=== PATIENT | male | born 2000 | race Caucasian/White ===

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

== ENCOUNTER 2022-12-05 19:54 | Observation (INO) | payer MEDICAID ==
[2022-12-05] MEDS ORDERED: Zofran 4 MG/2 ML VIAL IV ONE (20:10)
[2022-12-05] MEDS ORDERED: TORAdol 30 mg Injection IV ONE (20:10)
[2022-12-05] MEDS ORDERED: Sodium Chloride 0.9% 1000 ML 1,000 ML IV STA (20:10)
--- NOTE | 2022-12-05 20:15 | ERPHSYRPT ---
- History of Present Illness Time Seen by Provider: 12/05/22 20:01 Historian: patient, family Exam Limitations: clinical condition Physician History: 21 years old with history of autism, seizure disorder, decreased oral intake having feeding tube is brought in the ER with chief complaint of abdominal pain. Mom reports noticed some abdominal distention and prior to arrival he was complaining of abdominal pain when they tried to give use feeding tube for medication and has 1 episode of vomiting nonprojectile, nonbilious vomiting without hematemesis. No fever or chills reported. Allergies/Adverse Reactions: divalproex sodium [From Depakote] Allergy (Intermediate, Verified 12/05/22 20:20) topiramate [From Topamax] Allergy (Intermediate, Verified 12/05/22 20:20) lamotrigine [From Lamictal] Adverse Reaction (Verified 12/05/22 20:20) Home Medications: Rufinamide [Banzel] 8 ml PO BID 08/11/14 [History] Lacosamide [Vimpat] 17 ml G-TUBE BID 01/25/15 [History] Diazepam [Diastat] 10 mg RC UD 02/05/15 [History] clonazePAM [Clonazepam] 0.125 mg G-TUBE BID 02/24/17 [History] Glycopyrrolate 1 mg PO BID 08/04/18 [History] Calcium Carbonate 5 ml G-TUBE EVENING MEAL 11/05/18 [History] Cetirizine HCl 10 ml G-TUBE DAILY 10/03/19 [History] Hx Tetanus, Diphtheria Vaccination/Date Given: Yes Hx Influenza Vaccination/Date Given: No Hx Pneumococcal Vaccination/Date Given: No - Review of Systems All Other Systems: Unable due to condition - Past Medical History Pertinent Past Medical History: Yes Neurological History: Epilepsy, Seizures, Other ENT History: No Pertinent History Cardiac History: No Pertinent History Respiratory History: No Pertinent History Endocrine Medical History: No Pertinent History Musculoskeletal History: No Pertinent History GI Medical History: No Pertinent History History: No Pertinent History Psycho-Social History: Anxiety, Other Male Reproductive Disorders: No Pertinent History 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 Patient has a Vagal Nerve Stimulator (VNS) implanted in his left chest which is for seizure control. Also has autisim and is nonverbal. Uses sign language. - Past Surgical History Past Surgical History: Yes Neuro Surgical History: No Pertinent History Cardiac: No Pertinent History Respiratory: No Pertinent History Gastrointestinal: Appendectomy Genitourinary: No Pertinent History Musculoskeletal: Orthopedic Surgery Male Surgical History: No Pertinent History Other Surgical History: TONSILECTOMYADNOIDECTOMY. Vagal nerve stimulator (VNS) 05/2014. Appendectomy 08/11/14. Fractured left arm that was reset. tubes in ears - Social History Smoking Status: Never smoker Exposure to second hand smoke: No Drug Use: none Patient Lives Alone: No - Nursing Vital Signs Nursing Vital Signs: Initial Vital Signs Temperature 98.5 F 12/05/22 20:03 Pulse Rate 94 H 12/05/22 20:03 Respiratory Rate 16 12/05/22 20:03 Blood Pressure 141/84 12/05/22 20:03 O2 Sat by Pulse Oximetry 99 12/05/22 20:03 Pain Scale Pain Intensity 4 - Physical Exam General Appearance: no apparent distress, alert Eye Exam: PERRL/EOMI Ears, Nose, Throat Exam: normal ENT inspection Neck Exam: normal inspection, full range of motion Respiratory Exam: normal breath sounds, lungs clear Cardiovascular Exam: regular rate/rhythm, normal heart sounds Gastrointestinal/Abdomen Exam: soft, normal bowel sounds (Hypoactive), tenderness (Mild generalized with no guarding or rebound) Back Exam: normal inspection Extremity Exam: normal inspection, normal range of motion Neurologic Exam: alert, 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, cooperative Skin Exam: normal color SpO2 Interpretation: normal SpO2: 99 O2 Delivery: Room Air Ordered Tests: Active Orders 24 hr Category Date Time Status IV Insertion STAT Care 12/05/22 20:10 Active NPO (ED) STAT Care 12/05/22 20:10 Active ABDOMEN AND PELVIS W CONTRAST [CT] Stat Exams 12/05/22 22:17 Ordered ABDOMEN AND PELVIS W/0 CONTRAS [CT] Stat Exams 12/05/22 20:12 Completed CBC W DIFF Stat Lab 12/05/22 20:20 Completed CMP Stat Lab 12/05/22 20:20 Completed LIPASE Stat Lab 12/05/22 20:20 Completed UA W/RFX UR CULTURE Stat Lab 12/05/22 21:58 Completed Medication Summary Discontinued Medications Generic Name Dose Route Start Last Admin Trade Name Freq PRN Reason Stop Dose Admin Sodium Chloride 1,000 mls @ 999 mls/hr 12/05/22 20:10 12/05/22 22:04 Sodium Chloride 0.9% 1000 Ml IV 12/05/22 21:10 Infused .Q1H1M STA Infusion Sodium Chloride Confirm 12/05/22 20:43 Sodium Chloride 0.9% 1000 Ml Administered 12/05/22 20:44 Dose 1,000 mls @ ud .ROUTE .STK-MED ONE Ketorolac Tromethamine 15 mg 12/05/22 20:10 12/05/22 22:54 Ketorolac Tromethamine 30 Mg/Ml Inj IV 12/05/22 20:11 Not Given STAT ONE Ondansetron HCl 4 mg 12/05/22 20:10 12/05/22 20:44 Ondansetron Hcl 4 Mg/2 Ml Vial IV 12/05/22 20:11 4 mg STAT ONE Administration Ondansetron HCl Confirm 12/05/22 20:42 Ondansetron Hcl 4 Mg/2 Ml Vial Administered 12/05/22 20:43 Dose 4 mg .ROUTE .STK-MED ONE Lab/Rad Data: Laboratory Result Diagrams 12/05/22 20:20 12/05/22 20:20 Laboratory Results 12/05/22 12/05/22 12/05/22 Range/Units 21:58 20:20 20:20 WBC 10.0 (4.0-10.5) x10^3/uL RBC 6.01 H (4.1-5.6) x10^6/uL Hgb 16.5 (12.5-18.0) g/dL Hct 49.3 (42-50) % MCV 82.0 (78-100) fL MCH 27.5 (26-32) pg MCHC 33.5 (32-36) g/dL RDW 12.3 (11.5-14.0) % Plt Count 248 (150-450) x10^3/uL MPV 10.5 (7.5-11.0) fL Gran % 70.7 H (36.0-66.0) % Immature Gran % (Auto) 0.2 (0.00-0.4) % Nucleat RBC Rel Count 0.0 (0.00-0.1) % Eos # (Auto) 0.22 (0-0.5) x10^3/uL Immature Gran # (Auto) 0.02 (0.00-0.03) x10^3u/L Absolute Lymphs (auto) 2.04 (1.0-4.6) x10^3/uL Absolute Monos (auto) 0.61 (0.0-1.3) x10^3/uL Absolute Nucleated RBC 0.00 (0.00-0.01) x10^3u/L Lymphocytes % 20.5 L (24.0-44.0) % Monocytes % 6.1 (0.0-12.0) % Eosinophils % 2.2 (0.00-5.0) % Basophils % 0.3 (0.0-0.4) % Absolute Granulocytes 7.05 H (1.4-6.9) x10^3/uL Basophils # 0.03 (0-0.4) x10^3/uL Sodium 141 (137-145) mmol/L Potassium 4.6 (3.5-5.1) mmol/L Chloride 104 (98-107) mmol/L Carbon Dioxide 27 (22-30) mmol/L Anion Gap 14.2 (5-15) MEQ/L BUN 17 (9-20) mg/dL Creatinine 1.06 (0.66-1.25) mg/dL Estimated GFR > 60.0 ML/MIN Glucose 100 (74-106) mg/dL Calcium 9.7 (8.4-10.2) mg/dL Total Bilirubin 0.60 (0.2-1.3) mg/dL AST 28 (17-59) U/L ALT 14 (0-50) U/L Alkaline Phosphatase 77 (38-126) U/L Serum Total Protein 7.5 (6.3-8.2) g/dL Albumin 5.0 (3.5-5.0) g/dL Lipase 103 (23-300) U/L Urine Color Yellow (Yellow) Urine Appearance Turbid A (Clear) Urine pH 7.0 (4.6-8.0) Ur Specific [place] 1.015 (1.005-1.030) Urine Protein Negative (Negative) Urine Glucose (UA) Negative (Negative) mg/dL Urine Ketones Negative (Negative) Urine Blood Negative (Negative) Urine Nitrite Negative (Negative) Urine Bilirubin Negative (Negative) Urine Urobilinogen 1.0 A (0.2) mg/dL Ur Leukocyte Esterase Negative (Negative) U Hyaline Cast (Auto) NONE SEEN (0-2) /LPF Urine Microscopic RBC 0-2 (0-5) /HPF Urine Microscopic WBC 0-2 (0-5) /HPF Ur Epithelial Cells None Seen (None Seen) /HPF Urine Bacteria None Seen (None Seen) /HPF Urine Culture Reflexed NO (NO) - Progress Progress: improved, re-examined Progress Note: 12/05/22 20:15 21 years old with history of autism, seizure disorder, decreased oral intake having feeding tube is brought in the ER with chief complaint of abdominal pain. Mom reports noticed some abdominal distention and prior to arrival he was complaining of abdominal pain when they tried to give use feeding tube for medication and has 1 episode of vomiting nonprojectile, nonbilious vomiting without hematemesis. No fever or chills reported. No history of obstruction 12/05/22 23:11 On exam patient has diffuse mild tenderness with hypoactive bowel sounds. Is given fluids and symptomatic treatment for pain, on reevaluation feeling better and does not want any more pain medications. Work-up showed normal white count, fairly unremarkable chemistries. Obtained CT abdomen pelvis without contrast which showed markedly distended stomach with food particle and also distention of proximal duodenum with collapse in the distal part of the duodenum suspecting intestinal obstruction. Patient does have significant stool load seen on the CT and has history of constipation. I have discussed with Dr. James Rosales, reviewed history, work-up, recommended obtaining CT abdomen pelvis with p.o. and IV contrast and making patient n.p.o. for an admission to hospitalist service. I have discussed with Dr. Marybel Silvestre, reviewed history, work-up and surgery recommendation and patient is excepted for admission. I have discussed the results of work-up with patient and family and recommendations of general surgery and plan of admission which they understand and agree with it. 12/05/22 23:13 Discussed with : Keron Will see patient in: hospital (observation) Counseled pt/family regarding: lab results, diagnosis, rad results Medical Desision Making - Independent Historian Additional History obtained from: Mother - Diagnostic Testing Diagnostic test were ordered, analyzed, and reviewed by me: Yes Radiological Interpretation: Reviewed by me, Teleradiologist Report - Risk of complications The pt has a high risk of morbidity or mortality based on: Decision regarding hospitilization or escalation of hosp level of care - Departure Departure Disposition: Observation Clinical Impression: Intestinal obstruction Condition: Stable Critical Care Time: No Referrals: JEFF KAPLAN MD [Primary Care Provider] - Follow up/PCP as directed
[2022-12-05 20:28] LABS: Absolute Neutrophil Ct (ANC) 7.05 x10^3/uL (1.4-6.9); BASOPHIL % 0.3 % (0.0-0.4); Basophil (Absolute #) 0.03 x10^3/uL (0-0.4); Eosinophil % 2.2 % (0.00-5.0); Eosinophil (Absolute #) 0.22 x10^3/uL (0-0.5); Hematocrit 49.3 % (42-50); Hemoglobin 16.5 g/dL (12.5-18.0); IMMATURE GRAN # 0.02 x10^3u/L (0.00-0.03); IMMATURE GRAN % 0.2 % (0.00-0.4); Lymphocyte (Absolute #) 2.04 x10^3/uL (1.0-4.6); Lymphocytes % 20.5 % (24.0-44.0); Mean Corpuscular Hemoglobin 27.5 pg (26-32); Mean Corpuscular Hgb Concent. 33.5 g/dL (32-36); Mean Platelet Volume 10.5 fL (7.5-11.0); Monocyte (Absolute #) 0.61 x10^3/uL (0.0-1.3); Monocytes % 6.1 % (0.0-12.0); Neutrophil % 70.7 % (36.0-66.0); Platelet Count 248 x10^3/uL (150-450); Red Blood Count 6.01 x10^6/uL (4.1-5.6); Red Cell Distribution Width 12.3 % (11.5-14.0)
[2022-12-05] MEDS ORDERED: Zofran 4 MG/2 ML VIAL ONE (20:42)
[2022-12-05] MEDS ORDERED: Sodium Chloride 0.9% 1000 ML 1,000 ML ONE (20:43)
[2022-12-05 21:11] LABS: ALKALINE PHOSPHATASE 77 U/L (38-126); ANION GAP 14.2 MEQ/L (5-15); BLOOD UREA NITROGEN 17 mg/dL (9-20); CHLORIDE 104 mmol/L (98-107); Calcium 9.7 mg/dL (8.4-10.2); Carbon Dioxide 27 mmol/L (22-30); Creatinine 1 1.06 mg/dL (0.66-1.25); EST GLOMERULAR FILTRATION RATE > 60.0 ML/MIN; Glucose 100 mg/dL (74-106); LIPASE 103 U/L (23-300); Potassium 4.6 mmol/L (3.5-5.1); SGOT/AST 28 U/L (17-59); SGPT/ALT 14 U/L (0-50); SODIUM 141 mmol/L (137-145); Total Protein 7.5 g/dL (6.3-8.2)
--- NOTE | 2022-12-05 21:42 | XRAY ---
CLINICAL HISTORY:abd pain /vomiting COMPARISON:None. TECHNIQUE:A CT scan of the abdomen and pelvis was performed without IV contrast. CTDI : 2.53mGy, Total DLP : 144.94 mGy/cm. FINDINGS: A feeding tube was seen in the stomach. The stomach is grossly distended with food particles. The 1st part of the duodenum also appears dilated. The rest of the duodenum are not clearly visualized, may be collapsed or compressed. No surrounding fat stranding or free fluid is noted. No free air was seen at the time of the scan. Fecal-loaded large bowel loops appear normal, no gut wall thickening is appreciated. The sigmoid and rectum appear normal. The liver is normal in size and shape and with regular margins. It measures 13.1 cm. No focal or diffuse parenchymal abnormality. No hepatic mass is identified. The portal vein, intrahepatic biliary radicals, and the bile ducts are normal. Gall bladder appears contracted, and no radio-opaque calculus or pericholecystic fluid was identified. Common bile appears normal. Pancreas appears normal. No peripancreatic fat stranding, pancreatic pseudocyst, or peripancreatic fluid collection. Spleen normal in size, no mass seen. A small round calcification is seen in its superior aspect. Both adrenal glands are unremarkable. Both kidneys are normal in size, shape, and orientation. No calculi, cyst mass, or hydronephrosis was seen on either side. Both ureters and urinary bladder appear normal. The caecum and ileocecal junction appear normal. Several sub cm reactive appearing lymph nodes are seen in the mesentery and in para-aortic recesses. No pelvic side wall lymphadenopathy. Visualized thoracic and lumbar spine appear normal. No lytic or sclerotic bone lesions in visualized bones. Visualized lung bases are unremarkable. No pleural or pericardial effusion was noted. IMPRESSION: 1. Grossly distended stomach with food particles. The 1st part of the duodenum also appears dilated. The rest of the duodenum are not clearly visualized, may be collapsed or compressed. CT scan with contrast is suggested for further evaluation of the possible site of obstruction. Clinical correlation is advised. 2. The feeding tube is seen parked in the stomach. 3. Fecal stasis in the colon. The [facility] ER was called at [phone] at 08:33 PM [employer]IE[employer], 12/05/2022, and Ramesh Wynn was informed about significant findings. Electronically Signed by: Basil Soni MD. (12/05/2022 20:40:35 [employer])
[2022-12-05 22:08] LABS: Appearance Turbid (Clear); Bacteria None Seen /HPF (None Seen); Bilirubin Negative (Negative); Blood Negative (Negative); Epithelial Cells None Seen /HPF (None Seen); Glucose, Urine Negative (Negative); Hyaline Casts NONE SEEN /LPF (0-2); Ketones Negative (Negative); Leukocyte Esterase Negative (Negative); Nitrite Negative (Negative); Protein,Urine Dip Negative (Negative); RBC 0-2 /HPF (0-5); Specific Gravity 1.015 (1.005-1.030); WBC 0-2 /HPF (0-5)
[2022-12-05 22:09] LABS: ADD URINE CULTURE? NO (NO)
--- NOTE | 2022-12-06 00:15 | PCM.HP ---
History of Present Illness - Chief Complaint Chief Complaint: Abdominal distention History of Present Illness: is 21 year old with autism, seizure disorder, decreased oral intake requiring a G-tube who presents with abdominal distention, vomiting. No fevers. CT abdomen with no contrast in the ED showed a grossly distended stomach with food particles. The 1st part of the duodenum also appears dilated. The rest of the duodenum are not clearly visualized, may be collapsed or compressed, with radiology recommending a CT scan with contrast. Patient being admitted with plans for GI to see the patient in the AM. Keep NPO. On exam patient has diffuse mild tenderness with hypoactive bowel sounds. - Review of Systems Constitutional: No Fever, No Chills Eyes: No Symptoms Ears, Nose, & Throat: No Symptoms Respiratory: No Cough, No Short Of Breath Cardiac: No Chest Pain, No Edema, No Syncope Abdominal/Gastrointestinal: Abdominal Pain, Vomiting, No Nausea, No Diarrhea Genitourinary Symptoms: No Dysuria Musculoskeletal: No Back Pain, No Neck Pain Skin: No Rash Neurological: No Dizziness, No Focal Weakness, No Sensory Changes Psychological: No Symptoms Endocrine: No Symptoms Hematologic/Lymphatic: No Symptoms Immunological/Allergic: No Symptoms Medications & Allergies Home Medications: Home Medication List Rufinamide [Banzel] 8 ml PO BID 08/11/14 [History Confirmed 12/05/22] Lacosamide [Vimpat] 17 ml G-TUBE BID 01/25/15 [History Confirmed 12/05/22] Diazepam [Diastat] 10 mg RC UD 02/05/15 [History Confirmed 12/05/22] clonazePAM [Clonazepam] 0.125 mg G-TUBE BID 02/24/17 [History Confirmed 12/05/22] Glycopyrrolate 1 mg PO BID 08/04/18 [History Confirmed 12/05/22] Calcium Carbonate 5 ml G-TUBE EVENING MEAL 11/05/18 [History Confirmed 12/05/22] Cetirizine HCl 10 ml G-TUBE DAILY 10/03/19 [History Confirmed 12/05/22] Allergies/Adverse Reactions: Allergies Allergy/AdvReac Type Severity Reaction Status Date / Time divalproex sodium Allergy Intermediate Verified 12/05/22 20:20 [From Depakote] topiramate [From Topamax] Allergy Intermediate Verified 12/05/22 20:20 lamotrigine [From Lamictal] AdvReac Verified 12/05/22 20:20 - Past Medical History Past Medical History: Yes Neurological History: Epilepsy, Seizures, Other ENT History: No Pertinent History Cardiac History: No Pertinent History Respiratory History: No Pertinent History Endocrine Medical History: No Pertinent History Musculoskelatal History: No Pertinent History GI Medical History: No Pertinent History History: No Pertinent History Pyscho-Social History: Anxiety, Other Male Reproductive Disorders: No Pertinent History Comment: 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 Patient has a Vagal Nerve Stimulator (VNS) implanted in his left chest which is for seizure control. Also has autisim and is nonverbal. Uses sign language. - Past Surgical History Past Surgical History: Yes Neuro Surgical History: No Pertinent History Cardiac History: No Pertinent History Respiratory Surgery: No Pertinent History GI Surgical History: Appendectomy Genitourinary Surgical Hx: No Pertinent History Musculskeletal Surgical Hx: Orthopedic Surgery Male Surgical History: No Pertinent History Other Surgical History: TONSILECTOMYADNOIDECTOMY. Vagal nerve stimulator (VNS) 05/2014. Appendectomy 08/11/14. Fractured left arm that was reset. tubes in ears - Social History Smoking Status: Never smoker Exposure to second hand smoke: No Alcohol: None Drug Use: none - Physical Exam Vital Signs: Vital Signs - 24 hr Temp Pulse Resp BP BP Pulse Ox 12/05/22 23:14 99 12/05/22 22:01 81 18 145/78 97 12/05/22 21:30 90 20 144/89 97 12/05/22 21:28 89 18 162/85 99 12/05/22 20:03 98.5 F 94 H 16 141/84 99 General Appearance: no apparent distress, alert Neurologic Exam: alert, 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, cooperative, normal mood/affect, nml cerebellar function, nml station & gait, sensation nml, No motor deficits Eye Exam: PERRL/EOMI, eyes nml inspection Ears, Nose, Throat Exam: normal ENT inspection, TMs normal, pharynx normal, moist mucous membranes Neck Exam: normal inspection, non-tender, supple, full range of motion Respiratory Exam: normal breath sounds, lungs clear, No respiratory distress Cardiovascular Exam: regular rate/rhythm, normal heart sounds, normal peripheral pulses Gastrointestinal/Abdomen Exam: soft, distention (distended), No tenderness, No mass Back Exam: normal inspection, normal range of motion, No CVA tenderness, No vertebral tenderness Extremity Exam: normal inspection, normal range of motion, pelvis stable Skin Exam: normal color, warm, dry, No rash Lymphatic Exam: No adenopathy Results - Labs Lab/Micro Results: Lab Results-Last 24 Hours 12/05/22 12/05/22 12/05/22 Range/Units 20:20 20:20 21:58 WBC 10.0 (4.0-10.5) x10^3/uL RBC 6.01 H (4.1-5.6) x10^6/uL Hgb 16.5 (12.5-18.0) g/dL Hct 49.3 (42-50) % MCV 82.0 (78-100) fL MCH 27.5 (26-32) pg MCHC 33.5 (32-36) g/dL RDW 12.3 (11.5-14.0) % Plt Count 248 (150-450) x10^3/uL MPV 10.5 (7.5-11.0) fL Gran % 70.7 H (36.0-66.0) % Immature Gran % (Auto) 0.2 (0.00-0.4) % Nucleat RBC Rel Count 0.0 (0.00-0.1) % Eos # (Auto) 0.22 (0-0.5) x10^3/uL Immature Gran # (Auto) 0.02 (0.00-0.03) x10^3u/L Absolute Lymphs (auto) 2.04 (1.0-4.6) x10^3/uL Absolute Monos (auto) 0.61 (0.0-1.3) x10^3/uL Absolute Nucleated RBC 0.00 (0.00-0.01) x10^3u/L Lymphocytes % 20.5 L (24.0-44.0) % Monocytes % 6.1 (0.0-12.0) % Eosinophils % 2.2 (0.00-5.0) % Basophils % 0.3 (0.0-0.4) % Absolute Granulocytes 7.05 H (1.4-6.9) x10^3/uL Basophils # 0.03 (0-0.4) x10^3/uL Sodium 141 (137-145) mmol/L Potassium 4.6 (3.5-5.1) mmol/L Chloride 104 (98-107) mmol/L Carbon Dioxide 27 (22-30) mmol/L Anion Gap 14.2 (5-15) MEQ/L BUN 17 (9-20) mg/dL Creatinine 1.06 (0.66-1.25) mg/dL Estimated GFR > 60.0 ML/MIN Glucose 100 (74-106) mg/dL Calcium 9.7 (8.4-10.2) mg/dL Total Bilirubin 0.60 (0.2-1.3) mg/dL AST 28 (17-59) U/L ALT 14 (0-50) U/L Alkaline Phosphatase 77 (38-126) U/L Serum Total Protein 7.5 (6.3-8.2) g/dL Albumin 5.0 (3.5-5.0) g/dL Lipase 103 (23-300) U/L Urine Color Yellow (Yellow) Urine Appearance Turbid A (Clear) Urine pH 7.0 (4.6-8.0) Ur Specific [place] 1.015 (1.005-1.030) Urine Protein Negative (Negative) Urine Glucose (UA) Negative (Negative) mg/dL Urine Ketones Negative (Negative) Urine Blood Negative (Negative) Urine Nitrite Negative (Negative) Urine Bilirubin Negative (Negative) Urine Urobilinogen 1.0 A (0.2) mg/dL Ur Leukocyte Esterase Negative (Negative) U Hyaline Cast (Auto) NONE SEEN (0-2) /LPF Urine Microscopic RBC 0-2 (0-5) /HPF Urine Microscopic WBC 0-2 (0-5) /HPF Ur Epithelial Cells None Seen (None Seen) /HPF Urine Bacteria None Seen (None Seen) /HPF Urine Culture Reflexed NO (NO) - Radiology Impressions Radiology Exams & Impressions: Radiology Procedures Category Date Time Status ABDOMEN AND PELVIS W CONTRAST [CT] Stat Exams 12/05/22 22:17 Taken ABDOMEN AND PELVIS W/0 CONTRAS [CT] Stat Exams 12/05/22 20:12 Completed Assessment/Plan (1) Abdominal distention Current Visit: Yes Status: Acute Assessment & Plan: 1. NPO by mouth and G-tube 2. Continue IVF 3. CT Scan of abdomen with IV and PO contrast 4. GI to evaluate in the AM Code(s): R14.0 - ABDOMINAL DISTENSION (GASEOUS) Telemedicine Encounter - Telemedicine Encounter Telemedicine Encounter: The entirety of this encounter was performed via Telemedicine"
--- NOTE | 2022-12-06 00:22 | XRAY ---
CLINICAL HISTORY:abd pain, obstruction COMPARISON:12/06/2022 TECHNIQUE:Multiple axial sections of abdomen and pelvis were acquired with intravenous contrast administration. Coronal and sagittal reformatted images were obtained. FINDINGS: Both lung bases are clear. An enteral feeding tube was seen in the stomach with the bulb in distal gsrtric body. Again seen ia the grossly distended stomach with food residue, measuring 22.6 cm in CC dimension extending up to the level of L3. The 1st part of the duodenum also appears mildly prominent without signficant distention. The rest of the duodenum and small bowel loops are well opacified without dilatation. No surrounding fat stranding. The distal esophagus appears normal. Moderate colonic stool volume. The sigmoid and rectum appear normal. The caecum and ileocecal junction appear normal. The liver is normal in size and shape and with regular margins. No focal or diffuse parenchymal abnormality. No hepatic mass is identified. The portal vein, intrahepatic biliary radicals, and the bile ducts are normal. Gall bladder appears contracted, and no radio-opaque calculus was identified. Common bile appears normal. Pancreas appears normal. Spleen normal in size, no mass seen. A small round calcification/granuloma is seen in its superior aspect. Both adrenal glands are unremarkable. Both kidneys are normal in size, shape, and orientation. No calculi, cyst mass, or hydronephrosis was seen on either side. Both ureters and urinary bladder appear normal. No free fluid is noted. No free air was seen at the time of the scan. Several sub cm reactive appearing lymph nodes are seen in the mesentery and in para-aortic recesses. No pelvic side wall lymphadenopathy. Visualized thoracic and lumbar spine appear normal. No lytic or sclerotic bone lesions in visualized bones. Visualized lung bases are unremarkable. No pleural or pericardial effusion was noted. IMPRESSION: 1. Markedly distended stomach containing food residue. No distention of small bowel loops is seen. Possibility of gastric outlet obstruction would be a consideration. Findings are similar to the non-contrast study done earlier today. Recommend clinical correlation and follow-up. 2. An enteric feeding tube is seen with its bulb at distal gastric body. 3. Moderate colonic stool volume. Electronically Signed by: Basil Soni MD. (12/05/2022 23:20:37 [employer] IN [employer])
[2022-12-06] MEDS: Sodium Chloride 0.9% 1000 ML 1,000 ML IV SCH ×4 (00:45→23:58)
[2022-12-06 06:18] LABS: BASOPHIL % 0.2 % (0.0-0.4); Basophil (Absolute #) 0.02 x10^3/uL (0-0.4); Eosinophil % 2.1 % (0.00-5.0); Eosinophil (Absolute #) 0.19 x10^3/uL (0-0.5); Hematocrit 43.8 % (42-50); Hemoglobin 14.2 g/dL (12.5-18.0); IMMATURE GRAN # 0.02 x10^3u/L (0.00-0.03); IMMATURE GRAN % 0.2 % (0.00-0.4); Lymphocytes % 22.3 % (24.0-44.0); Mean Cell Volume 83.3 fL (78-100); Mean Corpuscular Hgb Concent. 32.4 g/dL (32-36); Mean Platelet Volume 10.3 fL (7.5-11.0); Monocyte (Absolute #) 0.55 x10^3/uL (0.0-1.3); Monocytes % 6.1 % (0.0-12.0); Neutrophil % 69.1 % (36.0-66.0); Platelet Count 220 x10^3/uL (150-450); Red Blood Count 5.26 x10^6/uL (4.1-5.6); Red Cell Distribution Width 12.4 % (11.5-14.0)
[2022-12-06 06:24] LABS: ALBUMIN 3.8 g/dL (3.5-5.0); ALKALINE PHOSPHATASE 68 U/L (38-126); ANION GAP 7.5 MEQ/L (5-15); BLOOD UREA NITROGEN 13 mg/dL (9-20); CHLORIDE 110 mmol/L (98-107); Calcium 8.8 mg/dL (8.4-10.2); Carbon Dioxide 28 mmol/L (22-30); EST GLOMERULAR FILTRATION RATE > 60.0 ML/MIN; Glucose 94 mg/dL (74-106); Potassium 3.9 mmol/L (3.5-5.1); SGOT/AST 17 U/L (17-59); SGPT/ALT 13 U/L (0-50); SODIUM 141 mmol/L (137-145); Total Protein 6.1 g/dL (6.3-8.2)
[2022-12-06] MEDS ORDERED: LACOSAMIDE 200 MG PO SCH (10:00)
[2022-12-06] MEDS ORDERED: CLONAZEPAM 0.25 MG G-TUBE SCH ×2 (10:00→22:00)
[2022-12-06] MEDS ORDERED: MEDICATION INTERVENTION MC SCH ×2 (10:30)
[2022-12-06] MEDS ORDERED: clonazePAM PO SCH ×2 (11:00→22:00)
[2022-12-06] MEDS: PATIENT OWN MEDICATION G-TUBE SCH ×2 (11:20→21:55)
[2022-12-06] MEDS: PATIENT OWN MEDICATION PO SCH ×4 (11:21→21:55)
--- NOTE | 2022-12-06 13:37 | PCM.NOTE ---
Date and Time: 12/06/228 Subjective Assessment: is 21 year old with autism, seizure disorder, decreased oral intake requiring a G-tube who presents with abdominal distention, vomiting. No fevers. CT abdomen with no contrast in the ED showed a grossly distended stomach with food particles. The 1st part of the duodenum also appears dilated. The rest of the duodenum are not clearly visualized, may be collapsed or compressed, with radiology recommending a CT scan with contrast. CT with contrast with similar findings with concerns for a gastric outlet obstruction. Patient having active seizure lasting less than one minute during exam. Mother in room and states that patient has multiple seizures per day. Surgery has been consulted. No planned surgical intervention. Not thought to be obstructed. - Review of Systems Constitutional: No Symptoms Eyes: No Symptoms Ears, Nose, & Throat: No Symptoms Respiratory: No Symptoms Cardiac: No Symptoms Abdominal/Gastrointestinal: Abdominal Pain, Nausea, Vomiting Genitourinary Symptoms: No Symptoms Musculoskeletal: No Symptoms Skin: No Symptoms Neurological: No Symptoms Psychological: No Symptoms, Other (non-verbal/autistic) Endocrine: No Symptoms Hematologic/Lymphatic: No Symptoms Immunological/Allergic: No Symptoms Objective Exam General Appearance: mild distress Neurologic Exam: normal mood/affect Skin Exam: normal color Respiratory Exam: normal breath sounds, lungs clear Cardiovascular Exam: regular rate/rhythm, tachycardia Gastrointestinal/Abdomen Exam: other (hypoactive BS x 4 quads) Extremity Exam: normal inspection Back Exam: normal inspection OBJECTIVE DATA Vital Signs: Vital Signs - 24 hr Temp Pulse Resp BP BP Pulse Ox 12/06/22 13:00 97.7 F 89 17 105/54 98 12/06/22 09:58 110 H 18 98 12/06/22 08:00 97.8 F 76 17 99/53 96 12/06/22 04:00 97.8 F 111 H 20 120/58 96 12/06/22 01:44 97.5 F 91 H 18 127/73 98 12/06/22 00:23 84 16 137/74 98 12/06/22 00:00 84 17 137/74 96 12/05/22 23:14 99 12/05/22 23:01 84 17 134/69 96 12/05/22 22:30 132/76 91 L 12/05/22 22:01 82 16 145/78 95 12/05/22 21:30 90 20 144/89 97 12/05/22 21:28 89 18 162/85 99 12/05/22 20:03 98.5 F 94 H 16 141/84 99 Pain Assessment - Last Documented Pain Intensity 0 Intake and Output: Intake & Output 12/04/22 12/05/22 12/06/22 12/07/22 11:59 11:59 11:59 11:59 Intake Total 0 0 Balance 0 0 Weight 51 kg Lab Results: Lab Results-Last 24 Hours 12/05/22 12/05/22 12/05/22 Range/Units 20:20 20:20 21:58 WBC 10.0 (4.0-10.5) x10^3/uL RBC 6.01 H (4.1-5.6) x10^6/uL Hgb 16.5 (12.5-18.0) g/dL Hct 49.3 (42-50) % MCV 82.0 (78-100) fL MCH 27.5 (26-32) pg MCHC 33.5 (32-36) g/dL RDW 12.3 (11.5-14.0) % Plt Count 248 (150-450) x10^3/uL MPV 10.5 (7.5-11.0) fL Gran % 70.7 H (36.0-66.0) % Immature Gran % (Auto) 0.2 (0.00-0.4) % Nucleat RBC Rel Count 0.0 (0.00-0.1) % Eos # (Auto) 0.22 (0-0.5) x10^3/uL Immature Gran # (Auto) 0.02 (0.00-0.03) x10^3u/L Absolute Lymphs (auto) 2.04 (1.0-4.6) x10^3/uL Absolute Monos (auto) 0.61 (0.0-1.3) x10^3/uL Absolute Nucleated RBC 0.00 (0.00-0.01) x10^3u/L Lymphocytes % 20.5 L (24.0-44.0) % Monocytes % 6.1 (0.0-12.0) % Eosinophils % 2.2 (0.00-5.0) % Basophils % 0.3 (0.0-0.4) % Absolute Granulocytes 7.05 H (1.4-6.9) x10^3/uL Basophils # 0.03 (0-0.4) x10^3/uL Sodium 141 (137-145) mmol/L Potassium 4.6 (3.5-5.1) mmol/L Chloride 104 (98-107) mmol/L Carbon Dioxide 27 (22-30) mmol/L Anion Gap 14.2 (5-15) MEQ/L BUN 17 (9-20) mg/dL Creatinine 1.06 (0.66-1.25) mg/dL Estimated GFR > 60.0 ML/MIN Glucose 100 (74-106) mg/dL Calcium 9.7 (8.4-10.2) mg/dL Total Bilirubin 0.60 (0.2-1.3) mg/dL AST 28 (17-59) U/L ALT 14 (0-50) U/L Alkaline Phosphatase 77 (38-126) U/L Serum Total Protein 7.5 (6.3-8.2) g/dL Albumin 5.0 (3.5-5.0) g/dL Lipase 103 (23-300) U/L Urine Color Yellow (Yellow) Urine Appearance Turbid A (Clear) Urine pH 7.0 (4.6-8.0) Ur Specific Boaz 1.015 (1.005-1.030) Urine Protein Negative (Negative) Urine Glucose (UA) Negative (Negative) mg/dL Urine Ketones Negative (Negative) Urine Blood Negative (Negative) Urine Nitrite Negative (Negative) Urine Bilirubin Negative (Negative) Urine Urobilinogen 1.0 A (0.2) mg/dL Ur Leukocyte Esterase Negative (Negative) U Hyaline Cast (Auto) NONE SEEN (0-2) /LPF Urine Microscopic RBC 0-2 (0-5) /HPF Urine Microscopic WBC 0-2 (0-5) /HPF Ur Epithelial Cells None Seen (None Seen) /HPF Urine Bacteria None Seen (None Seen) /HPF Urine Culture Reflexed NO (NO) 12/06/22 12/06/22 Range/Units 06:10 06:10 WBC 9.0 (4.0-10.5) x10^3/uL RBC 5.26 (4.1-5.6) x10^6/uL Hgb 14.2 (12.5-18.0) g/dL Hct 43.8 (42-50) % MCV 83.3 (78-100) fL MCH 27.0 (26-32) pg MCHC 32.4 (32-36) g/dL RDW 12.4 (11.5-14.0) % Plt Count 220 (150-450) x10^3/uL MPV 10.3 (7.5-11.0) fL Gran % 69.1 H (36.0-66.0) % Immature Gran % (Auto) 0.2 (0.00-0.4) % Nucleat RBC Rel Count 0.0 (0.00-0.1) % Eos # (Auto) 0.19 (0-0.5) x10^3/uL Immature Gran # (Auto) 0.02 (0.00-0.03) x10^3u/L Absolute Lymphs (auto) 2.00 (1.0-4.6) x10^3/uL Absolute Monos (auto) 0.55 (0.0-1.3) x10^3/uL Absolute Nucleated RBC 0.00 (0.00-0.01) x10^3u/L Lymphocytes % 22.3 L (24.0-44.0) % Monocytes % 6.1 (0.0-12.0) % Eosinophils % 2.1 (0.00-5.0) % Basophils % 0.2 (0.0-0.4) % Absolute Granulocytes 6.20 (1.4-6.9) x10^3/uL Basophils # 0.02 (0-0.4) x10^3/uL Sodium 141 (137-145) mmol/L Potassium 3.9 (3.5-5.1) mmol/L Chloride 110 H (98-107) mmol/L Carbon Dioxide 28 (22-30) mmol/L Anion Gap 7.5 (5-15) MEQ/L BUN 13 (9-20) mg/dL Creatinine 0.90 (0.66-1.25) mg/dL Estimated GFR > 60.0 ML/MIN Glucose 94 (74-106) mg/dL Calcium 8.8 (8.4-10.2) mg/dL Total Bilirubin 0.30 (0.2-1.3) mg/dL AST 17 (17-59) U/L ALT 13 (0-50) U/L Alkaline Phosphatase 68 (38-126) U/L Serum Total Protein 6.1 L (6.3-8.2) g/dL Albumin 3.8 (3.5-5.0) g/dL Lipase (23-300) U/L Urine Color (Yellow) Urine Appearance (Clear) Urine pH (4.6-8.0) Ur Specific Boaz (1.005-1.030) Urine Protein (Negative) Urine Glucose (UA) (Negative) mg/dL Urine Ketones (Negative) Urine Blood (Negative) Urine Nitrite (Negative) Urine Bilirubin (Negative) Urine Urobilinogen (0.2) mg/dL Ur Leukocyte Esterase (Negative) U Hyaline Cast (Auto) (0-2) /LPF Urine Microscopic RBC (0-5) /HPF Urine Microscopic WBC (0-5) /HPF Ur Epithelial Cells (None Seen) /HPF Urine Bacteria (None Seen) /HPF Urine Culture Reflexed (NO) Radiology Exams: Radiology Procedures Category Date Time Status ABDOMEN AND PELVIS W CONTRAST [CT] Stat Exams 12/05/22 22:17 Completed ABDOMEN AND PELVIS W/0 CONTRAS [CT] Stat Exams 12/05/22 20:12 Completed Assessment/Plan (1) Abdominal distention Current Visit: Yes Status: Acute Assessment & Plan: 1. NPO by mouth and G-tube 2. Continue IVF 3. CT Scan of abdomen with IV and PO contrast 4. GI to evaluate in the AM 10/16: -Surgical consult with no planned surgical intervention -Consider suppository if no BM per surg recs Code(s): R14.0 - ABDOMINAL DISTENSION (GASEOUS) (2) Intestinal obstruction Current Visit: Yes Status: Acute Assessment & Plan: -see above Code(s): K56.609 - UNSP INTESTNL OBST, UNSP TO PARTIAL VERSUS COMPLETE OBST (3) [place]-Gastaut syndrome Current Visit: No Status: Acute Qualifiers: Intractability: not intractable Status epilepticus: without status epilepticus Qualified Code(s): G40.812 - [place]-Gastaut syndrome, not intractable, without status epilepticus Assessment & Plan: -Noted, adds complexity, will continue home medications, neuro consulted for management while IP Code(s): G40.812 - CHRISTINA-GASTAUT SYNDROME, NOT INTRACTABLE, W/O STAT EPI (4) Seizure disorder, complex partial, with intractable epilepsy Current Visit: No Status: Acute Assessment & Plan: -Neuro consult for management/recs for hospitalization, will continue home meds for now, patient with vagal stimulator Code(s): G40.219 - LOCAL-REL SYMPTC EPI W CMPLX PART SEIZ, NTRCT, W/O STAT EPI
[2022-12-06] MEDS ORDERED: Dulcolax 10 MG SUPP PR PRN (14:11)
--- NOTE | 2022-12-06 15:13 | CONS ---
CONSULT DATE: 12/06/2022 HISTORY: This patient was seen for Dr. James Rosales who was consulted over the weekend. He asked that I check on the patient on Tuesday. A 21-year-old gentleman with Autism and seizure disorder. He has decreased oral intake. He has a feeding tube. He does take some things by mouth. He did not eat a lot yesterday according to the family. He has some abdominal pain with some bloating and vomiting bilious. He has not had any vomiting since admitted here. He has some constipation in the past week or so. He does not seem to have any current abdominal pain at this time. PAST MEDICAL HISTORY: As mentioned above. PAST SURGICAL HISTORY: T&A. He did have a vagal nerve stimulator. Appendectomy. Tubes in his ears in the past. Arm fracture in the past. MEDICATIONS: Banzel, Vimpat, Diastat, Clonazepam, glycopyrrolate, calcium carbonate, cetirizine taken through feeding tube. ALLERGIES: DIVALPROEX SODIUM. TOPIRAMATE. LAMOTRIGINE. FAMILY HISTORY: Negative for this specific problem. SOCIAL HISTORY: No smoking or alcohol abuse. LAB DATA AND TESTS: He had a CT scan read by the [facility] distended stomach and some food residue with feeding tube in the stomach. I reviewed these with Dr. Julián Turner here at the hospital. I personally reviewed the CT scan. He does have a distended stomach with some food material in it. However, the contrast is going through the small bowel, no dilatation of small bowel. There was a large amount of stool in the colon consistent with constipation. He is afebrile, vital signs stable. He does not appear to have any significant pain currently. He is not vomiting. He has not vomited since he has been here according to the family. White count is 10, hemoglobin 16. PHYSICAL EXAMINATION: GENERAL: No acute distress. HEENT: Sclera nonicteric. EOMI. Oral mucous membranes moist. NECK: No JVD. CHEST: Equal excursion, nonlabored breathing. CVS: Regular rhythm and pulse. ABDOMEN: Soft. No peritoneal signs. He has got a G button in place. He does not appear distended. He does not appear to have any significant tenderness now. EXTREMITIES: No edema. NEURO: Alert, moving extremities grossly symmetrically. PSYCH: Autism otherwise appropriate affect. IMPRESSION: This 21-year-old gentleman had an episode of distended stomach on CT scan. He does have constipation. I recommend suppository and if does not resolve consider enema to move his bowels. Increase p.o. intake. Unclear whether he had some gastroparesis or not. The contrast is definitely going to his small bowel. He does not have complete obstruction. I do not feel he needs any urgent endoscopy today as he had a bunch of food in his stomach and had not been drainage in his nasogastric tube. I feel likely the risk of aspiration would be higher than any benefit as he is not completely obstructed. Whether he has a component of gastroparesis or whether he had too much p.o. intake all at once. Either way, he does not appear to need emergent surgery at this time. I will discuss with Dr. James Rosales who I am seeing this patient for. If he has any other problems would recommend suppository and/or enema to get his bowels moving. If he fails to improve, could do formal upper GI study. If he is having problems intermediate, we will consider whether a GJ tube per Dr. James Rosales if needed down the road. Otherwise no emergent surgery necessary at this point. I do not recommend endoscopy as the stomach is full of food based on the scan when he came in last night. He is high risk aspiration. He does not appear to have acute chest and his contrast is going down into the small bowel. The family expressed their understanding. Again, I am seeing this patient for Dr. James Rosales. I will discuss with him and see if he has any other thoughts. He can follow up with him as an outpatient in the office.
[2022-12-06] MEDS ORDERED: RUFINAMIDE 40 MG/ML PO SCH (22:00)
[2022-12-07 04:30] LABS: Absolute Neutrophil Ct (ANC) 4.56 x10^3/uL (1.4-6.9); BASOPHIL % 0.4 % (0.0-0.4); Basophil (Absolute #) 0.03 x10^3/uL (0-0.4); Eosinophil % 3.5 % (0.00-5.0); Eosinophil (Absolute #) 0.27 x10^3/uL (0-0.5); Hematocrit 42.1 % (42-50); Hemoglobin 13.8 g/dL (12.5-18.0); IMMATURE GRAN # 0.02 x10^3u/L (0.00-0.03); IMMATURE GRAN % 0.3 % (0.00-0.4); Lymphocyte (Absolute #) 2.37 x10^3/uL (1.0-4.6); Lymphocytes % 30.8 % (24.0-44.0); Mean Cell Volume 82.9 fL (78-100); Mean Corpuscular Hemoglobin 27.2 pg (26-32); Mean Corpuscular Hgb Concent. 32.8 g/dL (32-36); Monocyte (Absolute #) 0.44 x10^3/uL (0.0-1.3); Monocytes % 5.7 % (0.0-12.0); Neutrophil % 59.3 % (36.0-66.0); Platelet Count 185 x10^3/uL (150-450); Red Blood Count 5.08 x10^6/uL (4.1-5.6); Red Cell Distribution Width 12.6 % (11.5-14.0); White Blood Count 7.7 x10^3/uL (4.0-10.5)
[2022-12-07 04:45] LABS: ALBUMIN 3.8 g/dL (3.5-5.0); ALKALINE PHOSPHATASE 72 U/L (38-126); ANION GAP 7.4 MEQ/L (5-15); BLOOD UREA NITROGEN 8 mg/dL (9-20); CHLORIDE 107 mmol/L (98-107); Calcium 8.7 mg/dL (8.4-10.2); Carbon Dioxide 27 mmol/L (22-30); Creatinine 1 0.83 mg/dL (0.66-1.25); EST GLOMERULAR FILTRATION RATE > 60.0 ML/MIN; Glucose 81 mg/dL (74-106); Potassium 3.6 mmol/L (3.5-5.1); SGOT/AST 21 U/L (17-59); SGPT/ALT 13 U/L (0-50); SODIUM 138 mmol/L (137-145); Total Protein 6.1 g/dL (6.3-8.2)
[2022-12-07] MEDS: Sodium Chloride 0.9% 1000 ML 1,000 ML IV SCH ×2 (07:55→16:05)
[2022-12-07] MEDS ORDERED: Miralax Powder 17GM PACKET PO PRN (08:10)
[2022-12-07] MEDS: PATIENT OWN MEDICATION PO SCH ×4 (09:59→20:34)
[2022-12-07] MEDS: PATIENT OWN MEDICATION G-TUBE SCH ×2 (10:04→20:34)
--- NOTE | 2022-12-07 13:11 | PCM.NOTE ---
Date and Time: 12/07/22 1306 Subjective Assessment: is 21 year old with autism, seizure disorder, decreased oral intake requiring a G-tube who presents with abdominal distention, vomiting. No fevers. CT abdomen with no contrast in the ED showed a grossly distended stomach with food particles. The 1st part of the duodenum also appears dilated. The rest of the duodenum are not clearly visualized, may be collapsed or compressed, with radiology recommending a CT scan with contrast. CT with contrast with similar findings with concerns for a gastric outlet obstruction. Patient having active seizure lasting less than one minute during exam. Mother in room and states that patient has multiple seizures per day. Surgery has been consulted. No planned surgical intervention. Not thought to be obstructed. Patient feeling better today, still no BM. Plan to try miralax and resume diet. Discharge pending BM. - Review of Systems Constitutional: No Symptoms Eyes: No Symptoms Ears, Nose, & Throat: No Symptoms Respiratory: No Symptoms Cardiac: No Symptoms Abdominal/Gastrointestinal: Constipation Genitourinary Symptoms: No Symptoms Musculoskeletal: No Symptoms Skin: No Symptoms Neurological: Seizure Psychological: No Symptoms Endocrine: No Symptoms Objective Exam General Appearance: no apparent distress Neurologic Exam: alert, cooperative Skin Exam: normal color Eye Exam: PERRL Respiratory Exam: normal breath sounds, lungs clear Cardiovascular Exam: regular rate/rhythm, normal heart sounds Gastrointestinal/Abdomen Exam: soft, other (Gtube to drain bag) Back Exam: normal inspection OBJECTIVE DATA Vital Signs: Vital Signs - 24 hr Temp Pulse Resp BP Pulse Ox 12/07/22 11:18 97.8 F 86 16 108/59 97 12/07/22 08:00 97.7 F 63 16 97/56 93 L 12/07/22 04:00 97.8 F 66 16 103/62 95 12/07/22 00:02 97.7 F 108/52 94 L 12/06/22 19:18 96.4 F 61 16 105/58 97 12/06/22 16:21 97.3 F 83 17 102/59 99 Pain Assessment - Last Documented Pain Intensity 0 Intake and Output: Intake & Output 12/05/22 12/06/22 12/07/22 12/08/22 11:59 11:59 11:59 11:59 Intake Total 0 3454 380 Output Total 150 Balance 0 3304 380 Weight 51 kg 51 kg Lab Results: Lab Results-Last 24 Hours 12/07/22 12/07/22 Range/Units 04:00 04:24 WBC 7.7 (4.0-10.5) x10^3/uL RBC 5.08 (4.1-5.6) x10^6/uL Hgb 13.8 (12.5-18.0) g/dL Hct 42.1 (42-50) % MCV 82.9 (78-100) fL MCH 27.2 (26-32) pg MCHC 32.8 (32-36) g/dL RDW 12.6 (11.5-14.0) % Plt Count 185 (150-450) x10^3/uL MPV 10.0 (7.5-11.0) fL Gran % 59.3 (36.0-66.0) % Immature Gran % (Auto) 0.3 (0.00-0.4) % Nucleat RBC Rel Count 0.0 (0.00-0.1) % Eos # (Auto) 0.27 (0-0.5) x10^3/uL Immature Gran # (Auto) 0.02 (0.00-0.03) x10^3u/L Absolute Lymphs (auto) 2.37 (1.0-4.6) x10^3/uL Absolute Monos (auto) 0.44 (0.0-1.3) x10^3/uL Absolute Nucleated RBC 0.00 (0.00-0.01) x10^3u/L Lymphocytes % 30.8 (24.0-44.0) % Monocytes % 5.7 (0.0-12.0) % Eosinophils % 3.5 (0.00-5.0) % Basophils % 0.4 (0.0-0.4) % Absolute Granulocytes 4.56 (1.4-6.9) x10^3/uL Basophils # 0.03 (0-0.4) x10^3/uL Sodium 138 (137-145) mmol/L Potassium 3.6 (3.5-5.1) mmol/L Chloride 107 (98-107) mmol/L Carbon Dioxide 27 (22-30) mmol/L Anion Gap 7.4 (5-15) MEQ/L BUN 8 L (9-20) mg/dL Creatinine 0.83 (0.66-1.25) mg/dL Estimated GFR > 60.0 ML/MIN Glucose 81 (74-106) mg/dL Calcium 8.7 (8.4-10.2) mg/dL Total Bilirubin 0.50 (0.2-1.3) mg/dL AST 21 (17-59) U/L ALT 13 (0-50) U/L Alkaline Phosphatase 72 (38-126) U/L Serum Total Protein 6.1 L (6.3-8.2) g/dL Albumin 3.8 (3.5-5.0) g/dL Radiology Exams: Radiology Procedures Category Date Time Status ABDOMEN AND PELVIS W CONTRAST [CT] Stat Exams 12/05/22 22:17 Completed ABDOMEN AND PELVIS W/0 CONTRAS [CT] Stat Exams 12/05/22 20:12 Completed Multi-Disciplinary Progress Notes: Multi-Disciplinary Progress Notes 12/07/22 12:38 Case Management Note by Larissa Escobar S/W WITH PATIENT MOTHER- PLAN IS STILL FOR PATIENT TO RETURN HOME WITH MOTHER AT [facility] AT TIME OF DC. NO NEW NEEDS IDENTIFIED AT THIS TIME. Initialized on 12/07/22 12:38 - END OF NOTE Assessment/Plan (1) Abdominal distention Current Visit: Yes Status: Acute Assessment & Plan: 1. NPO by mouth and G-tube 2. Continue IVF 3. CT Scan of abdomen with IV and PO contrast 4. GI to evaluate in the AM 12/06: -Surgical consult with no planned surgical intervention -Consider suppository if no BM per surg recs 12/07: -no BM, add miralax -resume diet -Possible d/c tomorrow pending bowel function Code(s): R14.0 - ABDOMINAL DISTENSION (GASEOUS) (2) Intestinal obstruction Current Visit: Yes Status: Acute Assessment & Plan: -see above Code(s): K56.609 - UNSP INTESTNL OBST, UNSP TO PARTIAL VERSUS COMPLETE OBST (3) [place]-Gastaut syndrome Current Visit: No Status: Acute Qualifiers: Intractability: not intractable Status epilepticus: without status epilepticus Qualified Code(s): G40.812 - [place]-Gastaut syndrome, not intractable, without status epilepticus Assessment & Plan: -Noted, adds complexity, will continue home medications, neuro consulted , no changes to current home regimen Code(s): G40.812 - [place]-GASTAUT SYNDROME, NOT INTRACTABLE, W/O STAT EPI (4) Seizure disorder, complex partial, with intractable epilepsy Current Visit: No Status: Acute Assessment & Plan: -see [place]an[place] gastaut syndrome Code(s): G40.219 - LOCAL-REL SYMPTC EPI W CMPLX PART SEIZ, NTRCT, W/O STAT EPI
[2022-12-08] MEDS: Sodium Chloride 0.9% 1000 ML 1,000 ML IV SCH (00:25)
--- NOTE | 2022-12-08 05:37 | PCM.DS ---
Discharge Summary Date of Admission: 12/06/22 00:40 Date of Discharge: 12/08/22 Admitting Physician: SHIREEN GANN MD Consults: Consults on Case 12/06/22 08:12 Consult Surgery ROUTINE 12/06/22 09:47 Consult Neurology ROUTINE Primary Care Provider: JEFF KAPLAN CANDIDO Allergies Allergies divalproex sodium [From Depakote] Allergy (Intermediate, Verified 12/05/22 20 :20) topiramate [From Topamax] Allergy (Intermediate, Verified 12/05/22 20:20) lamotrigine [From Lamictal] Adverse Reaction (Verified 12/05/22 20:20) Hospital Summary - Hospital Course Hospital Course: is 21 year old with autism, seizure disorder, decreased oral intake requiring a G-tube who presents with abdominal distention, vomiting. No fevers. CT abdomen with no contrast in the ED showed a grossly distended stomach with food particles. The 1st part of the duodenum also appears dilated. The rest of the duodenum are not clearly visualized, may be collapsed or compressed, with radiology recommending a CT scan with contrast. CT with contrast with similar findings with concerns for a gastric outlet obstruction. Patient having active seizure lasting less than one minute during exam. Mother in room and states that patient has multiple seizures per day. Surgery has been consulted. No planned surgical intervention. Not thought to be obstructed. Patient has resumed consumption of oral intake. Patient has had large BM and cleared by surgery for discharge. New Diagnosis:Abdominal distention New Medications: none Follow Up: pcp Latest Assessment & Plan (1) Abdominal distention Current Visit: Yes Status: Acute Assessment & Plan: 1. NPO by mouth and G-tube 2. Continue IVF 3. CT Scan of abdomen with IV and PO contrast 4. GI to evaluate in the AM 12/06: -Surgical consult with no planned surgical intervention -Consider suppository if no BM per surg recs 12/07: -no BM, add miralax -resume diet -Possible d/c tomorrow pending bowel function Code(s): R14.0 - ABDOMINAL DISTENSION (GASEOUS) (2) Intestinal obstruction Current Visit: Yes Status: Acute Assessment & Plan: -see above Code(s): K56.609 - UNSP INTESTNL OBST, UNSP TO PARTIAL VERSUS COMPLETE OBST (3) [place]-Gastaut syndrome Current Visit: No Status: Acute Qualifiers: Intractability: not intractable Status epilepticus: without status epilepticus Qualified Code(s): G40.812 - [place]-Gastaut syndrome, not intractable, without status epilepticus Assessment & Plan: -Noted, adds complexity, will continue home medications, neuro consulted , no changes to current home regimen Code(s): G40.812 - CHRISTINA-GASTAUT SYNDROME, NOT INTRACTABLE, W/O STAT EPI (4) Seizure disorder, complex partial, with intractable epilepsy Current Visit: No Status: Acute Assessment & Plan: -see [place] gastaut syndrome Code(s): G40.219 - LOCAL-REL SYMPTC EPI W CMPLX PART SEIZ, NTRCT, W/O STAT EPI I spent 35 minutes [id number] with the patient on the day of discharge performing discharge exam, discussing hospital stay and discharge instructions with patient and caregivers, preparation of discharge records, prescriptions & referral forms and addressing any questions/concerns the patient had as documented above. - Vitals & Intake/Output Vital Signs: Vital Signs Temperature 97.5 F 12/08/22 04:00 Pulse Rate 81 12/08/22 04:00 Respiratory Rate 18 12/08/22 04:00 Blood Pressure 107/57 12/08/22 04:00 O2 Sat by Pulse Oximetry 95 12/08/22 04:00 Intake & Output: Intake & Output 12/05/22 12/06/22 12/07/22 12/08/22 11:59 11:59 11:59 11:59 Intake Total 0 3454 2984 Output Total 150 75 Balance 0 3304 2909 Weight 51 kg 51 kg - Lab Result Diagrams: 12/08/22 08:20 12/08/22 08:20 Final Diagnosis/Problem List - Final Discharge Diagnosis/Problem (1) Abdominal distention Current Visit: Yes Status: Acute Code(s): R14.0 - ABDOMINAL DISTENSION (GASEOUS) (2) Intestinal obstruction Current Visit: Yes Status: Acute Code(s): K56.609 - UNSP INTESTNL OBST, UNSP TO PARTIAL VERSUS COMPLETE OBST (3) [place]-Gastaut syndrome Current Visit: No Status: Acute Code(s): G40.812 - CHRISTINA-GASTAUT SYNDROME, NOT INTRACTABLE, W/O STAT EPI (4) Seizure disorder, complex partial, with intractable epilepsy Current Visit: No Status: Acute Code(s): G40.219 - LOCAL-REL SYMPTC EPI W CMPLX PART SEIZ, NTRCT, W/O STAT EPI - Discharge Disposition: Home, Self-Care Condition: Stable Prescriptions: Continue Rufinamide [Banzel] 10 ml PO BID Diazepam [Diastat] 10 mg RC UD Glycopyrrolate 1 mg PO BID Cetirizine HCl 10 ml G-TUBE DAILY clonazePAM [Clonazepam] 0.125 mg G-TUBE DAILY clonazePAM [Clonazepam] 0.25 mg G-TUBE HS Lacosamide [Vimpat] 200 mg PO BID Follow up with: JEFF KAPLAN MD [Primary Care Provider] -
[2022-12-08 08:19] VITALS: BP 113/67; PULSE 71; RESP 16; TEMP 97.8; O2SAT 97
[2022-12-08 08:23] LABS: Absolute Neutrophil Ct (ANC) 5.07 x10^3/uL (1.4-6.9); BASOPHIL % 0.3 % (0.0-0.4); Basophil (Absolute #) 0.02 x10^3/uL (0-0.4); Eosinophil % 2.9 % (0.00-5.0); Eosinophil (Absolute #) 0.21 x10^3/uL (0-0.5); Hematocrit 45.5 % (42-50); Hemoglobin 14.6 g/dL (12.5-18.0); IMMATURE GRAN # 0.02 x10^3u/L (0.00-0.03); IMMATURE GRAN % 0.3 % (0.00-0.4); Lymphocyte (Absolute #) 1.51 x10^3/uL (1.0-4.6); Lymphocytes % 20.7 % (24.0-44.0); Mean Cell Volume 84.7 fL (78-100); Mean Corpuscular Hemoglobin 27.2 pg (26-32); Mean Corpuscular Hgb Concent. 32.1 g/dL (32-36); Monocyte (Absolute #) 0.45 x10^3/uL (0.0-1.3); Monocytes % 6.2 % (0.0-12.0); Neutrophil % 69.6 % (36.0-66.0); Platelet Count 193 x10^3/uL (150-450); Red Blood Count 5.37 x10^6/uL (4.1-5.6); Red Cell Distribution Width 12.4 % (11.5-14.0); White Blood Count 7.3 x10^3/uL (4.0-10.5)
[2022-12-08 08:39] LABS: ALBUMIN 4.3 g/dL (3.5-5.0); ALKALINE PHOSPHATASE 73 U/L (38-126); ANION GAP 8.4 MEQ/L (5-15); BLOOD UREA NITROGEN 12 mg/dL (9-20); CHLORIDE 108 mmol/L (98-107); Calcium 9.1 mg/dL (8.4-10.2); Carbon Dioxide 27 mmol/L (22-30); Creatinine 1 0.94 mg/dL (0.66-1.25); EST GLOMERULAR FILTRATION RATE > 60.0 ML/MIN; Glucose 90 mg/dL (74-106); Potassium 4.2 mmol/L (3.5-5.1); SGOT/AST 18 U/L (17-59); SGPT/ALT 13 U/L (0-50); SODIUM 139 mmol/L (137-145); Total Protein 6.7 g/dL (6.3-8.2)
[2022-12-08] MEDS: PATIENT OWN MEDICATION PO SCH ×2 (08:42→08:43)
[2022-12-08] MEDS: PATIENT OWN MEDICATION G-TUBE SCH (08:42)
== END 2022-12-08 10:22 | disposition home or self-care (01) ==
LOC: ED 19:54 → MED SURG 12-06 00:40
PROVIDERS: ADMIT Student in an Organized Health Care Education/Training Program; ATTEND Student in an Organized Health Care Education/Training Program
DX: R14.0 Abdominal distension (gaseous) (principal); K56.609 Unspecified intestinal obstruction, unspecified as to partial versus complete obstruction; G40.812 Lennox-Gastaut syndrome, not intractable, without status epilepticus; G40.219 Localization-related (focal) (partial) symptomatic epilepsy and epileptic syndromes with complex partial seizures, intractable, without status epilepticus; F84.0 Autistic disorder; Z79.899 Other long term (current) drug therapy; Z20.828 Contact with and (suspected) exposure to other viral communicable diseases
CPT/HCPCS: 36000; 36415; 74176; 74177; 80053; 81001; 83690; 85025; 96360; 96374; 99285; Q3014; G0378; J2405; A9270-GY

== ENCOUNTER 2022-12-10 16:28 | Emergency (ER) | payer MEDICAID ==
--- NOTE | 2022-12-10 16:31 | ERPHSYRPT ---
- History of Present Illness Time Seen by Provider: 12/10/22 16:30 Source: patient Exam Limitations: no limitations Physician History: This is a 21-year-old white male patient of Dr. Kaplan who has history of seizure disorders and several, often breakthrough seizures as well as autism. Prior to arrival today, patient had a seizure that was brief he fell from a sitting position and caught the edge of a chair in the lateral aspect of his right eyelid. There was a small amount of bleeding. The bleeding had stopped. Patient's mother wanted the child evaluated. She is not interested in a CAT scan of his head. Mom said hit he did not lose consciousness and he is acting like he usually does after his breakthrough seizures. Timing/Duration: today Quality: painful Severity: mild Location: face (Lateral aspect right thigh) Associated Symptoms: denies symptoms Allergies/Adverse Reactions: divalproex sodium [From Depakote] Allergy (Intermediate, Verified 12/05/22 20:20) topiramate [From Topamax] Allergy (Intermediate, Verified 12/05/22 20:20) lamotrigine [From Lamictal] Adverse Reaction (Verified 12/05/22 20:20) Home Medications: Rufinamide [Banzel] 10 ml PO BID 08/11/14 [History] Diazepam [Diastat] 10 mg RC UD 02/05/15 [History] Glycopyrrolate 1 mg PO BID 08/04/18 [History] Cetirizine HCl 10 ml G-TUBE DAILY 10/03/19 [History] Lacosamide [Vimpat] 200 mg PO BID 12/06/22 [History] clonazePAM [Clonazepam] 0.125 mg G-TUBE DAILY 12/06/22 [History] clonazePAM [Clonazepam] 0.25 mg G-TUBE HS 12/06/22 [History] Hx Tetanus, Diphtheria Vaccination/Date Given: Yes Hx Influenza Vaccination/Date Given: No Hx Pneumococcal Vaccination/Date Given: No Travel Risk - International Travel Have you traveled outside of the country in past 3 weeks: No - Coronavirus Screening Are you exhibiting any of the following symptoms?: No Close contact with a COVID-19 positive Pt in past 14-21 Days: No - Vaccine Status Have you recieved a Covid-19 vaccination: No - Vaccination Dates Comment: pt cough started after vagal nerve stimulator turned up, dry hacking cough - Review of Systems Constitutional: No Symptoms Eyes: No Symptoms Ears, Nose, & Throat: No Symptoms Respiratory: No Symptoms Cardiac: No Symptoms Abdominal/Gastrointestinal: No Symptoms Genitourinary Symptoms: No Symptoms Musculoskeletal: No Symptoms Skin: Other (Abrasion lateral aspect right eye) Neurological: No Symptoms Psychological: No Symptoms Endocrine: No Symptoms Hematologic/Lymphatic: No Symptoms Immunological/Allergic: No Symptoms All Other Systems: Reviewed and Negative - Past Medical History Pertinent Past Medical History: Yes Neurological History: Epilepsy, Seizures, Other ENT History: No Pertinent History Cardiac History: No Pertinent History Respiratory History: No Pertinent History Endocrine Medical History: No Pertinent History Musculoskeletal History: No Pertinent History GI Medical History: No Pertinent History History: No Pertinent History Psycho-Social History: Anxiety, Other Male Reproductive Disorders: No Pertinent History 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 Patient has a Vagal Nerve Stimulator (VNS) implanted in his left chest which is for seizure control. Also has autisim and is nonverbal. Uses sign language. - Past Surgical History Past Surgical History: Yes Neuro Surgical History: No Pertinent History Cardiac: No Pertinent History Respiratory: No Pertinent History Gastrointestinal: Appendectomy Genitourinary: No Pertinent History Musculoskeletal: Orthopedic Surgery Male Surgical History: No Pertinent History Other Surgical History: TONSILECTOMYADNOIDECTOMY. Vagal nerve stimulator (VNS) 05/2014. Appendectomy 08/11/14. Fractured left arm that was reset. tubes in ears - Social History Smoking Status: Never smoker Exposure to second hand smoke: No Drug Use: none Patient Lives Alone: No - Nursing Vital Signs Nursing Vital Signs: Initial Vital Signs Temperature 97.5 F 12/10/22 16:29 Pulse Rate 78 12/10/22 16:29 Respiratory Rate 20 12/10/22 16:29 Blood Pressure 135/76 12/10/22 16:29 O2 Sat by Pulse Oximetry 100 12/10/22 16:29 Pain Scale Pain Intensity 0 - Physical Exam General Appearance: no apparent distress, alert, other (My leading and laughing) Eye Exam: PERRL/EOMI, other (Abrasion present the lateral aspect of the junction between the upper and lower eyelid without laceration.) Ears, Nose, Throat Exam: normal ENT inspection, moist mucous membranes Neck Exam: normal inspection, non-tender, supple, full range of motion Respiratory Exam: No chest tenderness, No respiratory distress Gastrointestinal/Abdomen Exam: No tenderness Rectal Exam: not done Back Exam: normal inspection, normal range of motion, No CVA tenderness, No vertebral tenderness Extremity Exam: normal inspection, normal range of motion, pelvis stable Neurologic Exam: alert, 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, cooperative, border measurer II-XII nml as tested Skin Exam: abrasion (As described above) Lymphatic Exam: No adenopathy SpO2 Interpretation: normal O2 Delivery: Room Air - Course Nursing assessment & vital signs reviewed: Yes - Progress Progress Note: 12/10/22 16:59 Patient's medical issue is 1 of low complexity. The level complexity in the work-up performed is based on review of the patient's past medical history, patient medication list, patient drug allergy list, history present illness and physical findings on examination. No laboratory radiographic studies are necessary in this patient. Counseled pt/family regarding: diagnosis, need for follow-up Medical Desision Making - Independent Historian Additional History obtained from: Mother - Diagnostic Testing Diagnostic test were ordered, analyzed, and reviewed by me: No - Risk of complications Minimal Risk: Minimal risk of morbidity - Departure Departure Disposition: Home Clinical Impression: Abrasion of right eyelid Condition: Stable Critical Care Time: No Referrals: JEFF KAPLAN MD [Primary Care Provider] - Follow up/PCP as directed Additional Instructions: Keep the site clean daily with soap and water. Blot dry. Keep the soap and water out of the patient's eye. May apply thin layer of antibiotic ointment once a day. Follow-up with primary care provider for further evaluation management.
[2022-12-10 16:33] VITALS: RESP 20; TEMP 97.5
[2022-12-10 16:57] VITALS: BP 128/84; PULSE 68; O2SAT 98
== END 2022-12-10 17:11 | disposition home or self-care (01) ==
LOC: ED 16:28
DX: S00.211A Abrasion of right eyelid and periocular area, initial encounter (principal); W18.39XA Other fall on same level, initial encounter; G40.812 Lennox-Gastaut syndrome, not intractable, without status epilepticus; F84.0 Autistic disorder; Z79.899 Other long term (current) drug therapy
CPT/HCPCS: 99281

== ENCOUNTER 2024-03-15 13:58 | Emergency (ER) | payer BC, MEDICAID ==
--- NOTE | 2024-03-15 14:50 | ERPHSYRPT ---
- History of Present Illness Time Seen by Provider: 03/15/24 14:08 Historian: patient, family Exam Limitations: clinical condition Patient Subjective Stated Complaint: mother states that pt is complaining of back pain Triage Nursing Assessment: pt ambulated into the er; pt is axo; pt is nonverbal; c/o back; facial grimacing present; tenderness to lower back; active bowel sounds in all quads; mother denies N/V/D; mother denies fall; skin PDW; no respiratory distress present; vitals wnl Physician History: 23-year-old with history of autism, nonverbal, seizure disorder not very well- controlled, kidney stones is brought in the ER with complaint of bilateral flank/back pain more on the right side for last couple of days. No vomiting or diarrhea reported, does have history of constipation. Mom reports patient usually does not complain of pain but it seems like he is hurting bad since morning. No recent fall or trauma reported. Allergies/Adverse Reactions: divalproex sodium [From Depakote] Allergy (Intermediate, Verified 03/15/24 14:08) topiramate [From Topamax] Allergy (Intermediate, Verified 03/15/24 14:08) lamotrigine [From Lamictal] Adverse Reaction (Verified 03/15/24 14:08) Home Medications: Rufinamide [Banzel] 8 ml PO BID 08/11/14 [History] diazePAM [Diastat] 10 mg RC UD 02/05/15 [History] Glycopyrrolate 1 mg PO BID 08/04/18 [History] Cetirizine HCl 10 ml G-TUBE DAILY 10/03/19 [History] Lacosamide [Vimpat] 200 mg PO BID 12/06/22 [History] clonazePAM [Clonazepam] 0.25 mg G-TUBE DAILY 12/06/22 [History] clonazePAM [Clonazepam] 0.25 mg G-TUBE HS 12/06/22 [History] Cenobamate [Xcopri] 200 mg G-TUBE BID 03/15/24 [History] Clobazam [Onfi] 2 ml G-TUBE BID 03/15/24 [History] Hx Tetanus, Diphtheria Vaccination/Date Given: Yes Hx Influenza Vaccination/Date Given: No Hx Pneumococcal Vaccination/Date Given: No Immunizations Up to Date: Yes Travel Risk - International Travel Have you traveled outside of the country in past 3 weeks: No - Emerging Infectious Disease Are you exhibiting symptoms associated with any current EIDs: No - Review of Systems All Other Systems: Unable due to condition - Past Medical History Pertinent Past Medical History: Yes Neurological History: Epilepsy, Seizures, Other ENT History: No Pertinent History Cardiac History: No Pertinent History Respiratory History: No Pertinent History Endocrine Medical History: No Pertinent History Musculoskeletal History: No Pertinent History GI Medical History: No Pertinent History History: No Pertinent History Psycho-Social History: Anxiety, Other Male Reproductive Disorders: No Pertinent History 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 Patient has a Vagal Nerve Stimulator (VNS) implanted in his left chest which is for seizure control. Also has autisim and is nonverbal. Uses sign language. - Past Surgical History Past Surgical History: Yes Neuro Surgical History: No Pertinent History Cardiac: No Pertinent History Respiratory: No Pertinent History Gastrointestinal: Appendectomy Genitourinary: No Pertinent History Musculoskeletal: Orthopedic Surgery Male Surgical History: No Pertinent History Other Surgical History: TONSILECTOMYADNOIDECTOMY. Vagal nerve stimulator (VNS) 05/2014. Appendectomy 08/11/14. Fractured left arm that was reset. tubes in ears - Social History Smoking Status: Never smoker Exposure to second hand smoke: No Drug Use: none Patient Lives Alone: No - Social Determinants of Health Will the patient participate in the screening: Unable to obtain - Nursing Vital Signs Nursing Vital Signs: Initial Vital Signs Temperature 96.9 F 03/15/24 14:12 Pulse Rate 95 H 03/15/24 14:12 Respiratory Rate 20 03/15/24 14:12 Blood Pressure 118/61 03/15/24 14:12 O2 Sat by Pulse Oximetry 97 03/15/24 14:12 Pain Scale Pain Intensity [Lower Back] 4 Pain Intensity 0 - Physical Exam General Appearance: no apparent distress Eye Exam: eyes nml inspection Neck Exam: normal inspection, full range of motion Respiratory Exam: normal breath sounds, lungs clear Cardiovascular Exam: regular rate/rhythm, normal heart sounds Gastrointestinal/Abdomen Exam: soft, tenderness (Bilateral flank more on the right side with positive CVA tenderness. No midline back tenderness) Back Exam: normal inspection, normal range of motion Extremity Exam: normal inspection, normal range of motion Neurologic Exam: alert, cooperative Skin Exam: normal color SpO2 Interpretation: normal SpO2: 96 O2 Delivery: Room Air Ordered Tests: Active Orders 24 hr Category Date Time Status IV Insertion STAT Care 03/15/24 14:46 Completed ABDOMEN AND PELVIS W/0 CONTRAS [CT] Stat Exams 03/15/24 14:47 Completed CHEST WITHOUT CONTRAST [CT] Stat Exams 03/15/24 16:55 Taken BLOOD CULTURE Stat Lab 03/15/24 16:55 Received CBC W DIFF Stat Lab 03/15/24 15:18 Completed CMP Stat Lab 03/15/24 15:18 Completed LIPASE Stat Lab 03/15/24 15:18 Completed UA W/RFX UR CULTURE Stat Lab 03/15/24 14:59 Completed Medication Summary Discontinued Medications Generic Name Dose Route Start Last Admin Trade Name Eugenioq PRN Reason Stop Dose Admin Amoxicillin/Clavulanate Potassium 875 mg 03/15/24 19:24 03/15/24 19:34 Amox Tr/Potassium Clavulanate 875 Mg Tablet PO 03/15/24 19:25 875 mg STAT ONE Administration Amoxicillin/Clavulanate Potassium Confirm 03/15/24 19:33 Amox Tr/Potassium Clavulanate 875 Mg Tablet Administered 03/15/24 19:34 Dose 875 mg .ROUTE .STK-MED ONE Amoxicillin/Clavulanate Potassium Confirm 03/15/24 20:03 Amox Tr/Potassium Clavulanate 875 Mg Tablet Administered 03/15/24 20:04 Dose 875 mg .ROUTE .STK-MED ONE Sodium Chloride 1,000 mls @ 999 mls/hr 03/15/24 16:18 03/15/24 17:57 Sodium Chloride 0.9% 1000 Ml IV 03/15/24 17:18 Infused .Q1H1M STA Infusion Sodium Chloride Confirm 03/15/24 16:23 Sodium Chloride 0.9% 1000 Ml Administered 03/15/24 16:24 Dose 1,000 mls @ ud .ROUTE .STK-MED ONE Ketorolac Tromethamine 30 mg 03/15/24 14:46 03/15/24 15:12 Ketorolac Tromethamine 30 Mg/Ml Inj IV 03/15/24 14:47 30 mg STAT ONE Administration Ketorolac Tromethamine Confirm 03/15/24 15:11 Ketorolac Tromethamine 30 Mg/Ml Inj Administered 03/15/24 15:12 Dose 30 mg .ROUTE .STK-MED ONE Lab/Rad Data: Laboratory Result Diagrams 03/15/24 15:18 03/15/24 15:18 Laboratory Results 03/15/24 03/15/24 03/15/24 Range/Units 15:18 15:18 14:59 WBC 10.4 H (4.23-9.07) x10^3/uL RBC 5.29 (4.63-6.08) x10^6/uL Hgb 14.5 (13.7-17.5) g/dL Hct 44.2 (40.1-51.0) % MCV 83.6 (79.0-92.2) fL MCH 27.4 (25.7-32.2) pg MCHC 32.8 (32.3-36.5) g/dL RDW 12.1 (11.6-14.4) % Plt Count 196 (163-337) x10^3/uL MPV 10.0 (9.4-12.4) fL Gran % 80.6 H (34.0-67.9) % Immature Gran % (Auto) 0.3 (0.001-0.429) % Nucleat RBC Rel Count 0.0 (0.00-0.2) % Eos # (Auto) 0.09 (0.04-0.54) x10^3/uL Immature Gran # (Auto) 0.03 (0.001-0.031) x10^3u/L Absolute Lymphs (auto) 1.09 L (1.32-3.57) x10^3/uL Absolute Monos (auto) 0.78 (0.30-0.82) x10^3/uL Absolute Nucleated RBC 0.00 (0.00-0.012) x10^3u/L Lymphocytes % 10.5 L (21.8-53.1) % Monocytes % 7.5 (5.3-12.2) % Eosinophils % 0.9 (0.8-7.0) % Basophils % 0.2 (0.2-1.2) % Absolute Granulocytes 8.42 H (1.78-5.38) x10^3/uL Basophils # 0.02 (0.01-0.08) x10^3/uL Sodium 137 (135-145) mmol/L Potassium 4.2 (3.5-5.1) mmol/L Chloride 100 (98-107) mmol/L Carbon Dioxide 27 (22-30) mmol/L Anion Gap 14.5 (5-15) MEQ/L BUN 13 (9-20) mg/dL Creatinine 1.13 (0.66-1.25) mg/dL Estimated GFR 94.8 ML/MIN Glucose 87 (74-106) mg/dL Calcium 9.7 (8.4-10.2) mg/dL Total Bilirubin 0.90 (0.2-1.3) mg/dL AST 24 (17-59) U/L ALT 11 (0-50) U/L Alkaline Phosphatase 72 (38-126) U/L Serum Total Protein 7.9 (6.3-8.2) g/dL Albumin 5.0 (3.5-5.0) g/dL Lipase 27 (23-300) U/L Urine Color Dark Yellow (Yellow) Urine Appearance Clear (Clear) Urine pH 5.5 (4.6-8.0) Ur Specific [place] 1.025 (1.005-1.030) Urine Protein Trace A (Negative) Urine Glucose (UA) Negative (Negative) mg/dL Urine Ketones 80 A (Negative) Urine Blood Negative (Negative) Urine Nitrite Negative (Negative) Urine Bilirubin Negative (Negative) Urine Urobilinogen 1.0 A (0.2) mg/dL Ur Leukocyte Esterase Negative (Negative) U Hyaline Cast (Auto) NONE SEEN (0-2) /LPF Urine Microscopic RBC 0-2 (0-5) /HPF Urine Microscopic WBC 0-2 (0-5) /HPF Ur Epithelial Cells None Seen (None Seen) /HPF Urine Bacteria None Seen (None Seen) /HPF Urine Culture Reflexed NO (NO) - Progress Progress: improved Progress Note: 03/15/24 21:28 23-year-old with a history of autism nonverbal/constipation is evaluated in the ER for abdominal pain. Patient has mild diffuse lower abdominal tenderness with no guarding or rebound. He is given fluids and symptomatic treatment, on reevaluation is feeling much better. Workup showed normal white count, chemistries fairly unremarkable. Urinalysis consistent with some element of dehydration but no UTI. Obtain CT abdomen pelvis without contrast which showed no obstructive uropathy but did show diffuse fecal load and fecal impaction. CT abdomen pelvis also showed right lower lobe area of small pleural effusions/nodularity possible infectious etiology which was followed with CT chest which confirmed similar findings per preliminary report and no focal consolidation. Patient has history of aspiration and I believe you might have aspiration pneumonia, I have started him on Augmentin. Discussed with mom about fecal impaction /constipation and enema is given with a small bowel movement. We have tried manual disimpaction which was not successful. Mom does not want to continue with it, offered observation admission but she would like to take him home as she think he will feel more comfortable at home which is reasonable. He is not in any distress. Recommended continue with docusate and MiraLAX and outpatient follow-up. Discussed signs symptoms of worsening needing return to ER which mom seems understanding. Stable for discharge. Counseled pt/family regarding: lab results, diagnosis, need for follow-up, rad results Medical Desision Making - Independent Historian Additional History obtained from: Mother - Diagnostic Testing Diagnostic test were ordered, analyzed, and reviewed by me: Yes Radiological Interpretation: Reviewed by me - Risk of complications The pt has a mod risk of morbidity or mortality based on: Need for prescription drug management - Departure Departure Disposition: Home Clinical Impression: Constipation, Lower abdominal pain, Pneumonia Condition: Stable Critical Care Time: No Referrals: JEFF KAPLAN MD [Primary Care Provider] - Follow up with PCP 1 day Instructions: Pneumonia, Adult (DC), Fecal Impaction (DC) Additional Instructions: Daily MiraLAX and stool softener. Tylenol/ibuprofen as needed. Follow-up with primary care for reevaluation. Return to ER for worsening abdominal pain or if having difficulty breathing cough fever chills etc. Prescriptions: Amox Tr/Potass Clav. 875 mg [Augmentin 875-125 Tablet] 875 mg PO BID 10 Days #20 tablet
[2024-03-15] MEDS ORDERED: TORAdol 30 mg Injection ONE (15:11)
[2024-03-15] MEDS: TORAdol 30 mg Injection IV ONE (15:12)
[2024-03-15 15:22] LABS: Absolute Neutrophil Ct (ANC) 8.42 x10^3/uL (1.78-5.38); BASOPHIL % 0.2 % (0.2-1.2); Basophil (Absolute #) 0.02 x10^3/uL (0.01-0.08); Eosinophil % 0.9 % (0.8-7.0); Eosinophil (Absolute #) 0.09 x10^3/uL (0.04-0.54); Hematocrit 44.2 % (40.1-51.0); Hemoglobin 14.5 g/dL (13.7-17.5); IMMATURE GRAN # 0.03 x10^3u/L (0.001-0.031); IMMATURE GRAN % 0.3 % (0.001-0.429); Lymphocyte (Absolute #) 1.09 x10^3/uL (1.32-3.57); Lymphocytes % 10.5 % (21.8-53.1); Mean Cell Volume 83.6 fL (79.0-92.2); Mean Corpuscular Hemoglobin 27.4 pg (25.7-32.2); Mean Corpuscular Hgb Concent. 32.8 g/dL (32.3-36.5); Monocyte (Absolute #) 0.78 x10^3/uL (0.30-0.82); Monocytes % 7.5 % (5.3-12.2); Neutrophil % 80.6 % (34.0-67.9); Platelet Count 196 x10^3/uL (163-337); Red Blood Count 5.29 x10^6/uL (4.63-6.08); Red Cell Distribution Width 12.1 % (11.6-14.4); White Blood Count 10.4 x10^3/uL (4.23-9.07)
[2024-03-15 15:25] LABS: Appearance Clear (Clear); Bacteria None Seen /HPF (None Seen); Bilirubin Negative (Negative); Blood Negative (Negative); Epithelial Cells None Seen /HPF (None Seen); Glucose, Urine Negative (Negative); Hyaline Casts NONE SEEN /LPF (0-2); Ketones 80 (Negative); Leukocyte Esterase Negative (Negative); Nitrite Negative (Negative); Ph 5.5 (4.6-8.0); Protein,Urine Dip Trace (Negative); RBC 0-2 /HPF (0-5); Specific Gravity 1.025 (1.005-1.030); WBC 0-2 /HPF (0-5)
[2024-03-15 15:28] VITALS: TEMP 96.9
[2024-03-15 15:32] LABS: ANION GAP 14.5 MEQ/L (5-15); BILIRUBIN,TOTAL 0.9 mg/dL (0.2-1.3); Calcium 9.7 mg/dL (8.4-10.2); Creatinine 1 1.13 mg/dL (0.66-1.25); EST GLOMERULAR FILTRATION RATE 94.8 ML/MIN; Potassium 4.2 mmol/L (3.5-5.1); Total Protein 7.9 g/dL (6.3-8.2)
[2024-03-15] MEDS ORDERED: Sodium Chloride 0.9% 1000 ML 1,000 ML ONE (16:23)
[2024-03-15] MEDS: Sodium Chloride 0.9% 1000 ML 1,000 ML IV STA (16:24)
--- NOTE | 2024-03-15 16:45 | XRAY ---
Indication: Flank and back pain. Multiple contiguous axial images obtained through the abdomen and pelvis without contrast using renal stone protocol. Comparison: December 05, 2022 Lung bases demonstrates new incompletely visualized tiny right effusion and incompletely visualized 1.5 cm posterior subpleural cavitary nodularity. Heart not enlarged. No renal calculus or evidence for obstructive uropathy in either system. PEG balloon tip is in stomach lumen. Noncontrasted stomach and bowel loops appear nonobstructed. Again appendectomy. There is again moderate diffuse scattered colonic fecal debris throughout with moderate rectal fecal impaction. No free fluid/air. Remaining liver, gallbladder, pancreas, spleen, adrenal glands, kidneys, ureters, bladder, and aorta are unremarkable for noncontrast exam. Osseous structures intact. No ventral or inguinal hernias. Impression: 1. Continued negative renal calculus or evidence for obstructive uropathy. 2. New incompletely visualized tiny right effusion and 1.5 cm subpleural cavitary nodularity. Rule out inflammatory/infectious process. 3. Again moderate diffuse fecal stasis with rectal fecal impaction. 4. Remaining CT abdomen/pelvis without contrast exam is negative.
[2024-03-15] MEDS ORDERED: Augmentin 875-125 Tablet ONE ×2 (19:33→20:03)
[2024-03-15] MEDS: Augmentin 875-125 Tablet PO ONE (19:34)
[2024-03-15 21:13] VITALS: BP 133/82; PULSE 87; RESP 20
[2024-03-15 23:09] VITALS: O2SAT 96
--- NOTE | 2024-03-16 08:51 | XRAY ---
Indication: Pneumonia. Multiple contiguous axial images obtained through the chest without contrast. Comparison: None Posterior right lower lobe demonstrates 1.4 x 1.9 cm subpleural noncalcified nodularity with tiny effusion either round pneumonia versus round atelectasis. Small inferior right upper lobe calcified granuloma. Left lung clear. Heart not enlarged. Aorta is normal in course and caliber. Small precarinal and tiny right hilar calcified nodes. Bony thorax intact. CT abdomen/pelvis report separately. Impression: Right lower lobe round pneumonia versus round atelectasis. Incidental old granulomatous disease.
== END 2024-03-15 21:18 | disposition home or self-care (01) ==
LOC: ED 13:58
DX: K59.00 Constipation, unspecified (principal); R10.30 Lower abdominal pain, unspecified; J18.9 Pneumonia, unspecified organism; M54.9 Dorsalgia, unspecified; Z79.899 Other long term (current) drug therapy
CPT/HCPCS: 36415; 71250; 74176; 80053; 81001; 83690; 85025; 87040; 96360; 96374; 99284; 99285; J1885; A9270-GY

== ENCOUNTER 2024-03-18 12:52 | Emergency (ER) | payer BC, MEDICAID ==
[2024-03-18 13:17] VITALS: PULSE 75; TEMP 99; O2SAT 100
[2024-03-18] MEDS ORDERED: TORAdol 30 mg Injection ONE (13:22)
[2024-03-18] MEDS ORDERED: CITROMA 296 ML ONE (13:22)
[2024-03-18] MEDS: TORAdol 30 mg Injection IM ONE (13:23)
[2024-03-18] MEDS: CITROMA 296 ML PO ONE (13:24)
--- NOTE | 2024-03-18 13:40 | ERPHSYRPT ---
- History of Present Illness Time Seen by Provider: 03/18/24 13:35 Source: family Exam Limitations: physical impairment Patient Subjective Stated Complaint: C/O back pain Triage Nursing Assessment: Patient ambulated back to ER. Patient alert and no rmal cognition for patient (non-verbal, uses sign language). Mother at bedside. No SOB. 02 sats 100% on room air. S/S of pain present; grimacing. Physician History: Patient is 23-year-old male significant past medical history of mental impairment, status post G-tube placement for chronic nutrition was in the emergency room 3 days ago was diagnosed with pneumonia and constipation. Patient was given antibiotic but patient continues to have some pain in the back of the lungs as well as in the abdomen so mother brought him into the emergency room. In the emergency room patient is alert awake oriented does not appear to be in any distress. Mother denies any fever chills nausea vomiting shortness of breath or chest pain. Mother also denies any malfunctioning of G-tube. Timing/Duration: day(s) Severity: mild Associated Symptoms: denies symptoms Allergies/Adverse Reactions: divalproex sodium [From Depakote] Allergy (Intermediate, Verified 03/18/24 13:04) topiramate [From Topamax] Allergy (Intermediate, Verified 03/18/24 13:04) lamotrigine [From Lamictal] Adverse Reaction (Verified 03/18/24 13:04) Home Medications: Rufinamide [Banzel] 8 ml PO BID 08/11/14 [History] diazePAM [Diastat] 10 mg RC UD 02/05/15 [History] Glycopyrrolate 1 mg PO BID 08/04/18 [History] Cetirizine HCl 10 ml G-TUBE DAILY 10/03/19 [History] Lacosamide [Vimpat] 200 mg PO BID 12/06/22 [History] clonazePAM [Clonazepam] 0.25 mg G-TUBE DAILY 12/06/22 [History] clonazePAM [Clonazepam] 0.25 mg G-TUBE HS 12/06/22 [History] Cenobamate [Xcopri] 200 mg G-TUBE BID 03/15/24 [History] Clobazam [Onfi] 2 ml G-TUBE BID 03/15/24 [History] Amox Tr/Potass Clav. 875 mg [Augmentin 875-125 Tablet] 875 mg G-TUBE BID 03/18/24 [History] Hx Tetanus, Diphtheria Vaccination/Date Given: Yes Hx Influenza Vaccination/Date Given: No Hx Pneumococcal Vaccination/Date Given: No Travel Risk - International Travel Have you traveled outside of the country in past 3 weeks: No - Emerging Infectious Disease Are you exhibiting symptoms associated with any current EIDs: Yes Symptoms: Cough: New Onset, Headaches/Body Aches/ - Review of Systems Constitutional: No Symptoms Eyes: No Symptoms Ears, Nose, & Throat: No Symptoms Respiratory: No Symptoms Cardiac: No Symptoms Abdominal/Gastrointestinal: Constipation Genitourinary Symptoms: No Symptoms Musculoskeletal: Back Pain Skin: No Symptoms Neurological: No Symptoms Psychological: No Symptoms Endocrine: No Symptoms Hematologic/Lymphatic: No Symptoms - Past Medical History Pertinent Past Medical History: Yes Neurological History: Epilepsy, Seizures, Other ENT History: No Pertinent History Cardiac History: No Pertinent History Respiratory History: No Pertinent History Endocrine Medical History: No Pertinent History Musculoskeletal History: No Pertinent History GI Medical History: No Pertinent History History: No Pertinent History Psycho-Social History: Anxiety, Other Male Reproductive Disorders: No Pertinent History 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 Uses sign language. - Past Surgical History Past Surgical History: Yes Neuro Surgical History: No Pertinent History Cardiac: No Pertinent History Respiratory: No Pertinent History Gastrointestinal: Appendectomy Genitourinary: No Pertinent History Musculoskeletal: Orthopedic Surgery Male Surgical History: No Pertinent History Other Surgical History: Patient has a Vagal Nerve Stimulator (VNS) implanted in his left chest which is for seizure control.Fractured left arm that was reset. tubes in ears - Social History Smoking Status: Never smoker Exposure to second hand smoke: No Drug Use: none Patient Lives Alone: No - Social Determinants of Health Will the patient participate in the screening: Unable to obtain - Nursing Vital Signs Nursing Vital Signs: Initial Vital Signs Temperature 99 F 03/18/24 13:05 Pulse Rate 75 03/18/24 13:05 Respiratory Rate 20 03/18/24 13:05 Blood Pressure 105/68 03/18/24 13:05 O2 Sat by Pulse Oximetry 100 03/18/24 13:05 Pain Scale Pain Intensity 8 - Physical Exam General Appearance: no apparent distress, alert Eye Exam: PERRL/EOMI, eyes nml inspection Ears, Nose, Throat Exam: normal ENT inspection, TMs normal, pharynx normal, moist mucous membranes Neck Exam: normal inspection, non-tender, supple, full range of motion Respiratory Exam: normal breath sounds, lungs clear, No respiratory distress Cardiovascular Exam: regular rate/rhythm, normal heart sounds, normal peripheral pulses Gastrointestinal/Abdomen Exam: soft, normal bowel sounds, No tenderness, No mass, No guarding Back Exam: normal inspection, normal range of motion, No CVA tenderness, No vertebral tenderness Extremity Exam: normal inspection, normal range of motion, pelvis stable Neurologic Exam: alert, 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, cooperative, normal mood/affect, nml cerebellar function, nml station & gait, sensation nml, No motor deficits Skin Exam: normal color, warm, dry, No rash Lymphatic Exam: No adenopathy SpO2: 100 - Course Nursing assessment & vital signs reviewed: Yes - Radiology Exams Abdomen X-ray Interpretation: Interpreted by me, Reviewed by me, Negative Ordered Tests: Active Orders 24 hr Category Date Time Status KUB Stat Exams 03/18/24 13:16 Taken Medication Summary Discontinued Medications Generic Name Dose Route Start Last Admin Trade Name Eugenioq PRN Reason Stop Dose Admin Ketorolac Tromethamine 60 mg 03/18/24 13:16 03/18/24 13:23 Ketorolac Tromethamine 30 Mg/Ml Inj IM 03/18/24 13:17 60 mg STAT ONE Administration Ketorolac Tromethamine Confirm 03/18/24 13:22 Ketorolac Tromethamine 30 Mg/Ml Inj Administered 03/18/24 13:23 Dose 60 mg .ROUTE .STK-MED ONE Magnesium Citrate 150 ml 03/18/24 13:15 03/18/24 13:24 Magnesium Citrate 296 Ml Solution PO 03/18/24 13:16 150 ml 1XONLY ONE Administration Magnesium Citrate Confirm 03/18/24 13:22 Magnesium Citrate 296 Ml Solution Administered 03/18/24 13:23 Dose 296 ml .ROUTE .STK-MED ONE - Progress Progress: improved, pain not gone completely Counseled pt/family regarding: diagnosis, need for follow-up Medical Desision Making - Independent Historian Additional History obtained from: Mother - Diagnostic Testing Diagnostic test were ordered, analyzed, and reviewed by me: Yes Radiological Interpretation: Interpreted by me, Reviewed by me - Risk of complications Minimal Risk: Minimal risk of morbidity - Departure Departure Disposition: Home Clinical Impression: Constipation Qualifiers: Constipation type: chronic idiopathic constipation Qualified Code(s): K59.04 - Chronic idiopathic constipation Pneumonia Qualifiers: Pneumonia type: due to unspecified organism Laterality: bilateral Lung location: lower lobe of lung Qualified Code(s): J18.9 - Pneumonia, unspecified organism 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 The patient was counseled regarding Diagnosis,Lab results, Imaging studies, need for follow up and when to return to the Emergency Room. Prescriptions given: Discharge Note I have spoken with the patient and/or caregivers. I have explained the patient's condition, diagnosis and treatment plan based on the information available to me at this time. I have answered the patient's and/or caregiver's questions and addressed any concerns. The patient and/or caregivers have as good understanding of the patient's diagnosis, condition and treatment plan as can be expected at this point. The vital signs have been stable. The patient's condition is stable and appropriate for discharge from the emergency department. The patient will pursue further outpatient evaluation with the primary care physician or other designated or consulting physician as outlined in the discharge instructions. The patient and/or caregivers are agreeable to this plan of care and follow-up instructions have been explained in detail. The patient and/or caregivers have received these instruction. The patient/and or caregivers are aware that any significant change in condition or worsening of symptoms should prompt an immediate return to this or the closest emergency department or call 911. RYLAND MEZA was seen on 03/18/24 n the Emergency Room. At that time you were treated for an emergent condition, during your visit Laboratory, Radiology and/or other procedures may have been ordered. It is very important that you follow-up with your Primary Care Physician JEFF KAPLAN within the next 24- 48 hours to review your Emergency Room visit and the final results of testing that was ordered. Some test results such as Urine Cultures, Blood Cultures, and other cultures if ordered will not be finalized for 24-48 hours. If you do not have a Primary Care Provider please call the medical records department at [phone] ext [phone] to obtain a copy of your results or you may sign into our patient portal to obtain these results by visiting us @ [email or web address] and completing the following steps: 1. Click on the Patient Portal link 2. Click the Patient Self Enrollment Link to complete the enrollment form and entering your 3. Once the enrollment form is completed you will receive an email with a temporary ID and password at the email address you provided. 4. Next choose a user name and password. Your user name must be at least 4 characters long and your password must be at least 4 characters long. 5. Choose a security question from the list and provide your answer to the question. If you already have signed into the Health Portal you may access your Health Care Information 13/09 by the following steps: 1. Login to our website @ [email or web address] 2. Enter your original user name and password. FAQS The [facility] Health Portal is an online tool that contains your Lab Results, Radiology Reports, Visit History, Discharge Instructions and Health Summary Lab and Radiology Results will not be available for 72 hours on the portal. The Portal is a secure site, passwords are encryted and URLs are re-written so they cannot be copied and pasted. You and authorized family members are the only ones who can access your Portal. Also there is a timeout feature that protects your information if you leave the Portal page open. If you have technical difficulty please use the Contact Us link on the page this will allow you to submit any questions you have regarding the Portal or you may contact the Medical Record Department at [phone] ext [phone].
[2024-03-18 13:42] VITALS: BP 109/69; RESP 18
--- NOTE | 2024-03-18 18:30 | XRAY ---
Indication: Abdominal pain. Comparison: None KUB nonacute and nonobstructed with mild diffuse scattered colonic fecal debris including rectum. Solid organs and osseous structures unremarkable. Incidental PEG tube.
== END 2024-03-18 13:48 | disposition home or self-care (01) ==
LOC: ED 12:52
DX: K59.04 Chronic idiopathic constipation (principal); J18.9 Pneumonia, unspecified organism; G40.812 Lennox-Gastaut syndrome, not intractable, without status epilepticus; Z79.899 Other long term (current) drug therapy
CPT/HCPCS: 74018; 96372; 99283; 99284; J1885; A9270-GY

== ENCOUNTER 2024-04-02 20:52 | Emergency (ER) | payer BC, MEDICAID ==
[2024-04-02 21:44] VITALS: PULSE 78; RESP 18; TEMP 99
[2024-04-02 22:07] VITALS: BP 106/79; O2SAT 99
--- NOTE | 2024-04-02 22:22 | ERPHSYRPT ---
- History of Present Illness Time Seen by Provider: 04/02/24 21:55 Source: family Exam Limitations: clinical condition Patient Subjective Stated Complaint: c/o chin laceration Triage Nursing Assessment: patient brought into ED by mother with c/o chin laceration due to a fall. patient's mother states that he has fallen three times tonight. he has started a new med that has made him seizure free but has made him unsteady. mother witness his fall, states he either hit his chin on the exercise bike or the floor trim. Ptaient has a 2cm laceration under the chin, open to air, rates pain 6/10, vitals wnl, skin w/n/d, pateint doesn't appear to be in any distress at this time. Physician History: This is a 23-year-old white male patient who has a history of seizure disorders as well as autism and has been on a new antiseizure medication that is causing him to be unsteady in his gait. The tetanus status is unknown. Patient fell today without loss of consciousness and suffered a chin laceration. Patient is nonverbal. Timing/Duration: today Quality: painful Severity: mild Location: face (Chin laceration) Associated Symptoms: other (Chin skin laceration) Allergies/Adverse Reactions: divalproex sodium [From Depakote] Allergy (Intermediate, Verified 04/02/24 21 :44) topiramate [From Topamax] Allergy (Intermediate, Verified 04/02/24 21:44) lamotrigine [From Lamictal] Adverse Reaction (Verified 04/02/24 21:44) Home Medications: Rufinamide [Banzel] 8 ml PO BID 08/11/14 [History] diazePAM [Diastat] 10 mg RC UD 02/05/15 [History] Glycopyrrolate 1 mg PO BID 08/04/18 [History] Cetirizine HCl 1 tab G-TUBE DAILY 10/03/19 [History] Lacosamide [Vimpat] 200 mg PO BID 12/06/22 [History] clonazePAM [Clonazepam] 0.25 mg G-TUBE DAILY 12/06/22 [History] clonazePAM [Clonazepam] 0.25 mg G-TUBE HS 12/06/22 [History] Cenobamate [Xcopri] 200 mg G-TUBE BID 03/15/24 [History] Clobazam [Onfi] 2 ml G-TUBE BID 03/15/24 [History] Hx Tetanus, Diphtheria Vaccination/Date Given: Yes Hx Influenza Vaccination/Date Given: No Hx Pneumococcal Vaccination/Date Given: No Travel Risk - International Travel Have you traveled outside of the country in past 3 weeks: No - Emerging Infectious Disease Are you exhibiting symptoms associated with any current EIDs: No Symptoms: Cough: New Onset, Headaches/Body Aches/ - Review of Systems Constitutional: No Symptoms Eyes: No Symptoms Ears, Nose, & Throat: No Symptoms Respiratory: No Symptoms Cardiac: No Symptoms Abdominal/Gastrointestinal: No Symptoms Genitourinary Symptoms: No Symptoms Musculoskeletal: No Symptoms Skin: Other (Chin laceration) Neurological: No Symptoms Psychological: No Symptoms Endocrine: No Symptoms Hematologic/Lymphatic: No Symptoms Immunological/Allergic: No Symptoms All Other Systems: Reviewed and Negative - Past Medical History Pertinent Past Medical History: Yes Neurological History: Epilepsy, Seizures, Other ENT History: No Pertinent History Cardiac History: No Pertinent History Respiratory History: No Pertinent History Endocrine Medical History: No Pertinent History Musculoskeletal History: No Pertinent History GI Medical History: No Pertinent History History: No Pertinent History Psycho-Social History: Anxiety, Other Male Reproductive Disorders: No Pertinent History Other Medical History: 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 Also has autisim and is nonverbal. Uses sign language. - Past Surgical History Past Surgical History: Yes Neuro Surgical History: No Pertinent History Cardiac: No Pertinent History Respiratory: No Pertinent History Gastrointestinal: Appendectomy Genitourinary: No Pertinent History Musculoskeletal: Orthopedic Surgery Male Surgical History: No Pertinent History Other Surgical History: Patient has a Vagal Nerve Stimulator (VNS) implanted in his left chest which is for seizure control.Fractured left arm that was reset. tubes in ears - Social History Smoking Status: Never smoker Exposure to second hand smoke: No Drug Use: none Patient Lives Alone: No - Social Determinants of Health Will the patient participate in the screening: Unable to obtain - Nursing Vital Signs Nursing Vital Signs: Initial Vital Signs Temperature 99 F 04/02/24 21:36 Pulse Rate 78 04/02/24 21:36 Respiratory Rate 18 04/02/24 21:36 Blood Pressure 117/74 04/02/24 21:36 O2 Sat by Pulse Oximetry 100 04/02/24 21:36 Pain Scale Pain Intensity 6 - Physical Exam General Appearance: no apparent distress, alert Eye Exam: PERRL/EOMI, eyes nml inspection Ears, Nose, Throat Exam: normal ENT inspection, moist mucous membranes Neck Exam: normal inspection, non-tender, supple, full range of motion Respiratory Exam: airway intact, No chest tenderness, No respiratory distress Gastrointestinal/Abdomen Exam: No tenderness Rectal Exam: not done Back Exam: normal inspection, normal range of motion, No CVA tenderness, No vertebral tenderness Extremity Exam: normal inspection, normal range of motion, pelvis stable Neurologic Exam: 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, 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, 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, other (Patient is autistic and is nonverbal) Skin Exam: laceration (2 cm transversely oriented skin laceration underside of the chin) Lymphatic Exam: No adenopathy SpO2 Interpretation: normal SpO2: 99 O2 Delivery: Room Air Procedures - Laceration/Wound Repair Face Time of Procedure: 22:05 Wound Location: face (Underside of chin) Wound Length (cm): 2 Wound's Depth, Shape: superficial, linear Wound Explored: clean (Wound explored to the base in a bloodless field and no foreign body noted) Irrigated: Yes Hibiclens Prep: Yes Wound Repaired With: Steri-strips, Dermabond - Course Nursing assessment & vital signs reviewed: Yes Ordered Tests: Medication Summary Generic Name Dose Route Start Last Admin Trade Name Anthony PRN Reason Stop Dose Admin Diphtheria/Tetanus/Acell Pertussis 0.5 ml 04/02/24 22:22 Tdap --Diph,Pertuss(Acell),Tet Vac/Pf 0.5 Ml Vial IM 04/02/24 22:23 .ONCE ONE - Progress Progress: improved, re-examined Progress Note: 04/02/24 22:27 My medical decision making and the assignment of low complexity to this patient's medical issue today is based on review of the patient's past medical history, review the patient's medication list, review the patient drug allergy list, history present illness and physical findings on examination. No radiographic or laboratory studies are necessary in the workup of this patient. Differential diagnosis includes but is not limited to chin skin laceration 04/02/24 22:28 I did discuss with mom of the options of using Dermabond, benzoin and half-inch Steri-Strips. The other option we discussed with suture placement. She agrees with the Dermabond, benzoin and half-inch Steri-Strips Counseled pt/family regarding: diagnosis Medical Desision Making - Independent Historian Additional History obtained from: Mother - Diagnostic Testing Diagnostic test were ordered, analyzed, and reviewed by me: No - Risk of complications Minimal Risk: Minimal risk of morbidity - Departure Departure Disposition: Home Clinical Impression: Laceration of chin Condition: Stable Critical Care Time: No Referrals: JEFF KAPLAN MD [Primary Care Provider] - Follow up/PCP as directed Additional Instructions: Keep the pressure dressing in place for 24 hours. After 24 hours, may remove the top dressing but keep the Steri-Strips in place. After 24 hours may rinse the site off with soapy water. Blot dry use a chair maker. Do not pull off the Steri-Strips. Trim them as they start curling.
[2024-04-02] MEDS: Adacel Vial IM ONE (22:46)
== END 2024-04-02 22:52 | disposition home or self-care (01) ==
LOC: ED 20:52
DX: S01.81XA Laceration without foreign body of other part of head, initial encounter (principal); W19.XXXA Unspecified fall, initial encounter; Z79.899 Other long term (current) drug therapy
CPT/HCPCS: 12011; 99281; 99284